=== PATIENT | female | born 1975 | race African-American/Black ===

== ENCOUNTER 2024-02-10 15:52 | Emergency (ER) | payer BC, OTHER ==
[~2024-02-10] VITALS: Ht 165.1 cm; Wt 114.4 kg
--- NOTE | 2024-02-10 17:51 | ED.PDOC ---
HPI (NEURO) HPI Comments HPI: Poor Historian. 48-year-old female presents to the emergency department for evaluation of three day history of right-sided headache. Pain is constant nonradiating. No alleviating or precipitating factors. Patient tried some Tylenol at home without significant relief. Patient has history of remote migraines when she was a child. She says that this is different. Patient denies any fall or trauma or injury. VITALS: Temp: 97.5 F RR: 20 02 sat : 97 % on room air HR: 119 BP: 127/72 PMH: HTN, anemia PSH: metals in legs Social history: endorses tobacco use, denies ETOH use, denies drug use Medications: verapamil, HCTZ, Allergies: contrast dye REVIEW OF SYSTEMS: CONSTITUTIONAL: Denies acute: fever, diaphoresis, chills, generalized weakness. HEAD: Denies acute: photophobia Eyes: Denies acute: Double vision, vision loss, eye pain, eye discharge. EARS: Denies acute: tinnitus, hearing loss, ear discharge, ear pain, THROAT: Denies acute: sore throat, swelling, difficulty swallowing , pain with swallowing, change in voice. NECK: Denies acute: neck pain, neck swelling, stiff neck. HEART: Denies acute : chest pain, palpitations, LUNGS: Denies acute: SOB, wheezing, cough, hemoptysis ABDOMEN: Denies acute: abdominal pain, Nausea, Vomiting, diarrhea, melena , hematemesis, hematochezia SKIN: Denies acute: rash, redness, lesions, itchiness. EXTREMITIES: Denies acute: calf pain, numbness, tingling, weakness, denies pain in extremity. Denies acute: Low back pain. Neuro: Denies acute: focal neurological deficit, motor or sensory focal neurological deficit, tremors, seizure like activity, confusion, dizziness, change in mental status, loss of bowel or bladder function, cauda equina like symptoms. : Denies acute: dysuria, hematuria, flank pain, increase in urinary frequency. PSYCH: Denies acute: hallucination, suicidal ideation, homicidal ideation. FEMALE: Denies acute: abnormal vaginal bleeding, foul odor, unusual discharge. PHYSICAL EXAM: General: no acute distress, awake and alert. Head: normocephalic, atraumatic. Neck: supple, trachea is midline, no swelling. Throat: Normal phonation. Eyes:, no erythema, no purulent discharge, no proptosis, no icterus. Heart: regular rate, regular rhythm, no significant murmur appreciated. Lungs: no apparent respiratory distress, Able to speak in full sentences. No wheezing, no rhonchi, no crackles. No stridors Clear to auscultation bilaterally. Abdomen: non tender to palpation, non distended, soft, no guarding, no rebound, + bowel sounds. Obese Neuro: Awake, Alert, oriented to name, self, situation, follows commands GCS=15. Speech is normal. Skin: no petechia, no purpura, no cyanosis, non-pale, not jaundice. Lower extremities: --no - Pitting edema no deformity, no focal swelling, no calf TTP. Makes eye contact. moves all four extremities. Face: no apparent facial droop. Ambulating in the ED independently. PERRLA, EOM-I CN 2-12 are grossly intact, No nystagmus. No nuchal rigidity, Kernig's sign, Brudzinski's sign, no meningeal signs. Chief Complaint: Headache Time Seen by MD: 16:55 Reviewed Notes: Nurses Notes, Medications, Allergies Information Source: Patient Mode of Arrival: Ambulatory Was a procedure done? Was a procedure done?: No X-Ray, Labs, Meds, VS Vital Signs Date Time Temp Pulse Resp B/P (MAP) Pulse Ox O2 Delivery O2 Flow Rate FiO2 02/10/24 16:18 97.5 119 20 127/72 (90) 97 Lab Test 02/10/24 22:01 02/10/24 19:58 02/10/24 18:32 02/10/24 17:57 Range/Units White Blood Count 14.1 H 15.6 H 4.4-10.8 10^3/uL Red Blood Count 4.77 4.78 4.0-5.20 10^6/uL Hemoglobin 9.4 L 9.6 L 12.2-16.2 g/dL Hematocrit 31.5 L 31.7 L 36.0-46.0 % Mean Corpuscular Volume 66.0 L 66.3 L 80.0-100.0 fL Mean Corpuscular Hemoglobin 19.7 L 20.1 L 28.0-32.0 pg Mean Corpuscular Hemoglobin Concent 29.9 L 30.3 L 32.0-36.0 g/dL Red Cell Distribution Width 20.0 H 19.9 H 11.8-14.3 % Platelet Count 460 H 466 H 140-450 10^3/uL Mean Platelet Volume 7.0 7.2 6.9-10.8 fL Neutrophils (%) (Auto) 65.6 62.9 37.0-80.0 % Lymphocytes (%) (Auto) 27.6 28.9 10.0-50.0 % Monocytes (%) (Auto) 4.7 5.6 0.0-12.0 % Eosinophils (%) (Auto) 1.5 1.9 0.0-7.0 % Basophils (%) (Auto) 0.6 0.7 0.0-2.0 % Neutrophils # (Auto) 9.3 H 9.8 H 1.6-8.6 10 ^3/uL Lymphocytes # (Auto) 3.9 4.5 0.4-5.4 10 ^3/uL Monocytes # (Auto) 0.7 0.9 0-1.3 10 ^3/uL Eosinophils # (Auto) 0.2 0.3 0-0.8 10 ^3/uL Basophils # (Auto) 0.1 0.1 0-0.2 10 ^3/uL Nucleated Red Blood Cells 0.1 0.1 % Lactic Acid Level Pending 2.1 *H 2.2 *H 0.4-2.0 mmol/L Urine Color Light-yellow Yellow Urine Clarity Clear Clear Urine pH 7.0 5.0-9.0 Urine Specific [place] 1.015 1.001-1.035 Urine Protein Negative Negative Urine Ketones Negative Negative Urine Blood 1+ H Negative /uL Urine Nitrite Negative Negative Urine Bilirubin Negative Negative Urine Urobilinogen Normal Negative mg/dL Urine Leukocyte Esterase Negative Negative /uL Urine RBC 1 0 - 4 /hpf Urine WBC 1 0 - 5 /hpf Urine Squamous Epithelial Cells Few <5 /hpf Urine Bacteria None seen None Seen /hpf Urine Glucose Normal Normal mg/dL Platelet Estimate Increased Large Platelets Few Giant Platelets Few Hypochromasia (manual) Moderate Anisocytosis (manual) Slight Microcytosis Moderate Target Cells Few Ovalocytes Few Stomatocytes Few Erythrocyte Sedimentation Rate 22 H 0-20 mm/hr Sodium Level 137 136-145 mmol/L Potassium Level 4.0 3.5-5.1 mmol/L Chloride Level 101 98-107 mmol/L Carbon Dioxide Level 27 20-31 mmol/L Anion Gap 9 5-15 Blood Urea Nitrogen 10 9-23 mg/dL Creatinine 0.86 0.550-1.02 mg/dL Glomerular Filtration Rate Calc 84 >90 mL/min BUN/Creatinine Ratio 11.6 10.0-20.0 Serum Glucose 139 H 74-106 mg/dL Calcium Level 10.2 8.7-10.4 mg/dL Magnesium Level 1.9 1.6-2.6 mg/dL Total Bilirubin 0.2 0.2-1.0 mg/dL Aspartate Amino Transferase (AST) 8 L 13-40 U/L Alanine Aminotransferase (ALT) 12 7-40 U/L Alkaline Phosphatase 116 46-116 U/L Troponin I High Sensitivity < 3 L </=34 ng/L Total Protein 7.5 5.7-8.2 g/dL Albumin 4.6 3.2-4.8 g/dL Beta HCG, Quantitative < 0.0 L 1.5-4.2 mIU/mL Test 02/10/24 16:19 02/10/24 07:30 Range/Units POC Glucose 161 H 70-106 mg/dl Urine Opiates Screen Neg NEGATIVE Urine Fentanyl Screen Neg NEGATIVE Urine Barbiturates Screen Neg NEGATIVE Urine Phencyclidine Screen Neg NEGATIVE Urine Amphetamines Screen Neg NEGATIVE Urine Benzodiazepines Screen Neg NEGATIVE Urine Cocaine Screen Neg NEGATIVE Urine Cannabinoids Screen Neg NEGATIVE Current Medications Medications (Trade) Dose Ordered Sig/Vannsesa Route Start Time Stop Time Status Last Admin Acetaminophen/ Hydrocodone Bitart ([place] 5/325MG Tab) 1 tab ONCE ONCE PO 02/10/24 18:15 02/10/24 18:16 DC 02/10/24 21:50 Sodium Chloride 1,000 ml @ 1,000 mls/hr Q1H ONCE IV 02/10/24 18:45 02/10/24 19:44 DC 02/10/24 18:30 Prednisone 60 mg ONCE ONCE PO 02/10/24 19:45 02/10/24 20:50 DC 02/10/24 21:49 [facility] [id number] [place] [id number] Ph: [phone] DIAGNOSTIC IMAGING Diagnostic Imaging Report : [id number] Signed PATIENT: JOSEPHINE STEEN ACCT: [id number] UNIT: [id number] : 1975 LOC: ER ROOM / BED: / AGE / SEX: 48 / F ADM STATUS: REG ER SERVICE [id number] ORDERING PHYSICIAN: LAISHA RAHMAN DO PROCEDURE(s): HWOCT - HEAD WITHOUT CONTRAST REASON: MULLINS ORDER NUMBER(s): [id number], ACCESSION NUMBER(s): [id number] EXAM: CT HEAD WITHOUT CONTRAST INDICATION: MULLINS TECHNIQUE: CT of the head without intravenous contrast. Radiation Dose Information: CT Dose: CTDI volume is 64.7 mGy. Dose-length product is 1145.48 mGy*cm The dose indicators for CT are the volume Computed Tomography (CT) Dose Index (CTDIvol) and the Dose Length Product (DLP), and are measured in units of mGy and mGy-cm, respectively. These indicators are not patient dose, but values generated from the CT scanner acquisition factors. The report includes radiation exposure data for exposures received during this examination. COMPARISON: None FINDINGS: There is no evidence of acute intracranial hemorrhage, extra-axial collection, mass effect, midline shift, herniation or hydrocephalus. The ventricles, sulci and cisterns are age appropriate. The malloy-white differentiation is intact. Patchy periventricular and subcortical white matter hypoattenuation is nonspecific but may be related to small vessel ischemic disease. The visualized paranasal sinuses and mastoid air cells are clear. The surrounding soft tissues and osseous structures are unremarkable. IMPRESSION: 1. No acute intracranial hemorrhage. 2. No CT findings of territorial ischemia. 3. No CT findings of paranasal sinus disease ATED BY: LOUIS GOODMAN Jr., DO DICTATED DATE/TIME: 02/10/241907 SIGNED BY: LOUIS GOODMAN Jr., SIGNED DATE/TIME: 02/10/241907 CC: Patient Education/Counseling: Diagnosis, Treatment Family Education/Counseling: No Family Present Comments MDM: Patient presented with the above HPI.----- headache -workup was initiated. patient was found with the above mentioned diagnosis. the following medications were ordered: none the following tests were ordered: EKGx1, drug screen, lactic acid, Beta HCG, UA, troponin x 1, ESR, magnesium,CBC, CMP, CT head without contrast, Patient ED course and VS have been stabilized. Patient has been reassessed in the ED and remained in a stable condition. Patient has been observed in the ED adequate length of time to insure improvement/stability. Escalation of care considered: Consideration of escalation to observation or admission. patient was ADMITTED to the medicine team for further evaluation and treatment of their presentation. patient was DISCHARGED after further evaluation and treatment of their presentation. All the reports of any imaging studies that were ordered by myself were reviewed by myself. Departure 1 Departure Time of Disposition: 20:30 Impression: Primary Impression: Right-sided headache Additional Impressions: Anemia Leukocytosis Disposition: HOME / SELF CARE / HOMELESS Condition: Stable Additional Instructions: Additional discharge instructions: You MUST follow-up with your primary care/family doctor in 1 to 2 days. If you are unable to see your primary care/family doctor, please return to our emergency room for re-assessment and re-evaluation in 1 to 2 days. Return to the emergency room here in our facility or to the nearest ER [facility] if your symptoms change or worsen. CONSULTATIONS: you MUST Follow-up for consultation as soon as possible with: -neurology in 1-2 days. Please call for appointment You MUST call the consultants office yourself to make an appointment. You may need to arrange that through your insurance and/or your primary/family doctor. If you are unable to see the field technical support consultant in 1 to 2 days, you must return to our emergency room (or any other ER of your choice) for re-assessment and re- evaluation. Adequate fluid hydration. You are anemic. Take daily iron supplements. Below is a copy of your radiological report for follow up: [facility] [id number] [place] [id number] Ph: [phone] DIAGNOSTIC IMAGING Diagnostic Imaging Report : [id number] Signed PATIENT: JOSEPHINE STEEN ACCT: [id number] UNIT: [id number] : 1975 LOC: ER ROOM / BED: / AGE / SEX: 48 / F ADM STATUS: REG ER SERVICE [id number] ORDERING PHYSICIAN: LAISHA RAHMAN DO PROCEDURE(s): HWOCT - HEAD WITHOUT CONTRAST REASON: MULLINS ORDER NUMBER(s): [id number], ACCESSION NUMBER(s): [id number] EXAM: CT HEAD WITHOUT CONTRAST INDICATION: MULLINS TECHNIQUE: CT of the head without intravenous contrast. Radiation Dose Information: CT Dose: CTDI volume is 64.7 mGy. Dose-length product is 1145.48 mGy*cm The dose indicators for CT are the volume Computed Tomography (CT) Dose Index (CTDIvol) and the Dose Length Product (DLP), and are measured in units of mGy and mGy-cm, respectively. These indicators are not patient dose, but values generated from the CT scanner acquisition factors. The report includes radiation exposure data for exposures received during this examination. COMPARISON: None FINDINGS: There is no evidence of acute intracranial hemorrhage, extra-axial collection, mass effect, midline shift, herniation or hydrocephalus. The ventricles, sulci and cisterns are age appropriate. The malloy-white differentiation is intact. Patchy periventricular and subcortical white matter hypoattenuation is nonspecific but may be related to small vessel ischemic disease. The visualized paranasal sinuses and mastoid air cells are clear. The surrounding soft tissues and osseous structures are unremarkable. IMPRESSION: 1. No acute intracranial hemorrhage. 2. No CT findings of territorial ischemia. 3. No CT findings of paranasal sinus disease ATED BY: LOUIS GOODMAN Jr., DO DICTATED DATE/TIME: 02/10/241907 SIGNED BY: LOUIS GOODMAN Jr., DO SIGNED DATE/TIME: 02/10/241907 CC: Discharged With: Self I personally scribed for LAISHA RAHMAN DO ([email or web address]) on 02/10/24 at 17:51. Electronically submitted by Mitul Nicole ([facility]). I personally scribed for LAISHA RAHMAN DO ([email or web address]) on 02/10/24 at 17:56. Electronically submitted by Mitul Nicole ([facility]). I personally scribed for LAISHA RAHMAN DO ([email or web address]) on 02/10/24 at 19:39. Electronically submitted by Mitul Nicole ([facility]). I personally scribed for LAISHA RAHMAN DO ([email or web address]) on 02/10/24 at 21:04. Electron[facility]ul [facility] ([facility] I personally scribed for LAISHA RAHMAN DO ([facility] on 02/10/24 at 22:25. Electronically submitted by Mitul Nicole ([facility]). LAISHA RAHMAN DO Feb 10, 2024 17:51
[2024-02-10 18:11] LABS: Basophils # (auto) 0.1 10 ^3/uL (0-0.2); Eosinophils # (auto) 0.3 10 ^3/uL (0-0.8); Mean Corpuscular Hgb Conc. 30.3 g/dL (32.0-36.0); Monocytes # (auto) 0.9 10 ^3/uL (0-1.3); Neutrophils # (auto) 9.8 10 ^3/uL (1.6-8.6); Nucleated Red Blood Cells % 0.1 %; Red Cell Distribution Width 19.9 % (11.8-14.3)
[2024-02-10 18:13] LABS: Basophils % (auto) 0.7 % (0.0-2.0); Eosinophils % (auto) 1.9 % (0.0-7.0); Hematocrit 31.7 % (36.0-46.0); Hemoglobin 9.6 g/dL (12.2-16.2); Lymphocytes # (auto) 4.5 10 ^3/uL (0.4-5.4); Lymphocytes % (auto) 28.9 % (10.0-50.0); Mean Corpuscular Hemoglobin 20.1 pg (28.0-32.0); Mean Corpuscular Volume 66.3 fL (80.0-100.0); Monocytes % (auto) 5.6 % (0.0-12.0); Neutrophils % (auto) 62.9 % (37.0-80.0); Platelet Count (auto) 466 10^3/uL (140-450); Red Blood Cells 4.78 10^6/uL (4.0-5.20); White Blood Cell 15.6 10^3/uL (4.4-10.8)
[2024-02-10 18:26] LABS: Alanine Aminotransferase 12 U/L (7-40); Albumin 4.6 g/dL (3.2-4.8); Anion Gap 9 (5-15); BUN/Creatinine Ratio 11.6 (10.0-20.0); Blood Urea Nitrogen 10 mg/dL (9-23); Calcium 10.2 mg/dL (8.7-10.4); Carbon Dioxide 27 mmol/L (20-31); Chloride 101 mmol/L (98-107); Magnesium 1.9 mg/dL (1.6-2.6); Sodium 137 mmol/L (136-145)
[2024-02-10 18:27] LABS: Total Protein 7.5 g/dL (5.7-8.2)
[2024-02-10 18:28] LABS: Alkaline Phosphatase 116 U/L (46-116); Aspartate Aminotransferase 8 U/L (13-40); Bilirubin, Total 0.2 mg/dL (0.2-1.0); Glucose 139 mg/dL (74-106)
[2024-02-10] MEDS: SODIUM CHLORIDE 0.9% 1,000 ML IV ONE (18:30)
[2024-02-10 18:32] LABS: Lactic Acid w/Reflex 2.2 mmol/L (0.4-2.0)
[2024-02-10 18:33] LABS: Urine Bacteria None Seen /hpf (None Seen)
[2024-02-10 18:45] LABS: Erythrocyte Sedimentation Rate 22 mm/hr (0-20)
[2024-02-10 18:46] LABS: Anisocytosis Slight; Giant Platelets Few; Hypochromia Moderate; Large Platelets FEW; Ovalocytes FEW; Platelet Estimate Increased; Stomatocytes Few; Target Cell FEW
[2024-02-10 18:49] LABS: Urine Blood 1+ /uL (Negative); Urine Clarity Clear (Clear); Urine Color Light-Yellow (Yellow); Urine Protein, UAD Negative (Negative); Urine Specific Gravity 1.015 (1.001-1.035); Urine Squamous Epithelial Cell FEW /hpf (<5); Urine Urobilinogen Normal (Negative); Urine WBC 1 /hpf (0 - 5)
--- NOTE | 2024-02-10 19:11 | DVH ---
EXAM: CT HEAD WITHOUT CONTRAST INDICATION: MULLINS TECHNIQUE: CT of the head without intravenous contrast. Radiation Dose Information: CT Dose: CTDI volume is 64.7 mGy. Dose-length product is 1145.48 mGy*cm The dose indicators for CT are the volume Computed Tomography (CT) Dose Index (CTDIvol) and the Dose Length Product (DLP), and are measured in units of mGy and mGy-cm, respectively. These indicators are not patient dose, but values generated from the CT scanner acquisition factors. The report includes radiation exposure data for exposures received during this examination. COMPARISON: None FINDINGS: There is no evidence of acute intracranial hemorrhage, extra-axial collection, mass effect, midline s hift, herniation or hydrocephalus. The ventricles, sulci and cisterns are age appropriate. The malloy-white differentiation is intact. Patchy periventricular and subcortical white matter hypoattenuation is nonspecific but may be related to small vessel ischemic disease. The visualized paranasal sinuses and mastoid air cells are clear. The surrounding soft tissues and osseous structures are unremarkable. IMPRESSION: 1. No acute intracranial hemorrhage. 2. No CT findings of territorial ischemia. 3. No CT findings of paranasal sinus disease
[2024-02-10 19:14] LABS: Amphetamine Screen, Urine Neg (NEGATIVE); Barbiturate Scree,Urine Neg (NEGATIVE); Benzodiazephine Screen, Urine Neg (NEGATIVE); Cannabinoid Screen, Urine Neg (NEGATIVE); Cocaine Screen, Urine Neg (NEGATIVE); Opiate Scree,Urine Neg (NEGATIVE); Phencyclidine Screen, Urine Neg (NEGATIVE)
[2024-02-10] MEDS ORDERED: KETOROLAC TROMETH 30 MG/ML 1ML VIAL IV ONE (19:45)
[2024-02-10] MEDS: predniSONE 20 MG TAB PO ONE (21:49)
[2024-02-10] MEDS: HYDROcodone-ACET 5/325MG TAB PO ONE (21:50)
[2024-02-10 22:15] LABS: Basophils # (auto) 0.1 10 ^3/uL (0-0.2); Eosinophils # (auto) 0.2 10 ^3/uL (0-0.8); Hematocrit 31.5 % (36.0-46.0); Monocytes # (auto) 0.7 10 ^3/uL (0-1.3)
[2024-02-10 22:17] LABS: Basophils % (auto) 0.6 % (0.0-2.0); Eosinophils % (auto) 1.5 % (0.0-7.0); Hemoglobin 9.4 g/dL (12.2-16.2); Lymphocytes # (auto) 3.9 10 ^3/uL (0.4-5.4); Lymphocytes % (auto) 27.6 % (10.0-50.0); Mean Corpuscular Hemoglobin 19.7 pg (28.0-32.0); Mean Corpuscular Hgb Conc. 29.9 g/dL (32.0-36.0); Monocytes % (auto) 4.7 % (0.0-12.0); Neutrophils # (auto) 9.3 10 ^3/uL (1.6-8.6); Neutrophils % (auto) 65.6 % (37.0-80.0); Nucleated Red Blood Cells % 0.1 %; Platelet Count (auto) 460 10^3/uL (140-450); Red Blood Cells 4.77 10^6/uL (4.0-5.20); White Blood Cell 14.1 10^3/uL (4.4-10.8)
[2024-02-10 23:04] VITALS: BP 137/90; PULSE 95; RESP 18; TEMP 97.8; O2SAT 97
== END 2024-02-10 23:12 | disposition home or self-care (01) ==
LOC: ER 15:52
DX: D64.9 Anemia, unspecified (principal); D72.829 Elevated white blood cell count, unspecified; R51.9 Headache, unspecified; I10 Essential (primary) hypertension; Z88.8 Allergy status to other drugs, medicaments and biological substances; Z79.899 Other long term (current) drug therapy
CPT/HCPCS: 36415; 70450; 80053; 80307; 81001; 82962; 83605; 83735; 84484; 84702; 85025; 85652; 96360; 99284; J7030; J7512

== ENCOUNTER 2024-02-19 03:37 | Emergency (ER) | payer BC, OTHER ==
[~2024-02-19] VITALS: Ht 165.1 cm; Wt 116.7 kg
--- NOTE | 2024-02-19 04:49 | ED.PDOC ---
HPI (NEURO) HPI Comments This is a 48-year-old female presents to the ED chief complaint headache x1 week. Patient also reports right lower jaw dental pain and some sinus congestion. She reports migraines in the past which she usually relieved with [id number] Tylenol. The last one last this long was over one year ago. She denies vision changes, slurred speech, fevers, chills, nausea, vomiting, neck pain, worst headache of her life, chest pain, difficulty breathing, shortness of breath. Chief Complaint: Headache Time Seen by MD: 03:44 Reviewed Notes: Nurses Notes, Medications, Allergies Mode of Arrival: Ambulatory Headache Severity: Moderate Past Medical History PAST MEDICAL HISTORY: HTN Family History Family History: Reviewed,noncontributory to illness Social History Smoker: Non-Smoker Alcohol: Denies ETOH Use Drugs: Denies Drug Use Constitutional: denies: chills, diaphoresis, fatigue, fever, malaise, sweats, weakness, others EENTM: reports: nasal discharge, others (toothache ); denies: blurred vision, double vision, ear bleeding, ear discharge, ear drainage, ear pain, ear ringing, eye pain, eye redness, hearing loss, mouth pain, mouth swelling, nose bleeding, nose congestion, nose pain, photophobia, tearing, throat pain, throat swelling, voice changes Respiratory: denies: cough, hemoptysis, orthopnea, SOB at rest, shortness of breath, SOB with excertion, stridor, wheezing, others Cardiovascular: denies: chest pain, dizzy spells, diaphoresis, Dyspnea on exertion, edema, irregular heart beat, left arm pain, lightheadedness, palpitations, PND, syncope, others Gastrointestinal: denies: abdomen distended, abdominal pain, blood streaked bowels, constipated, diarrhea, dysphagia, difficulty swallowing, hematemesis, melena, nausea, poor appetite, poor fluid intake, rectal bleeding, rectal pain, vomiting, others Genitourinary: denies: abnormal vagina bleeding, burning, dyspareunia, dysuria, flank pain, frequency, hematuria, incontinence, pain, , vagina discharge, urgency, others Neurological: reports: headache; denies: dizziness, fainting, left sided numbness, left sided weakness, numbness, paresthesia, pre-existing deficit, right sided numbness, right sided weakness, seizure, speech problems, tingling, tremors, weakness, others Musculoskeletal: denies: back pain, gout, joint pain, joint swelling, muscle pain, muscle stiffness, neck pain, others Integumetry: denies: bruises, change in color, change in hair/nails, dryness, laceration, lesions, lumps, rash, wounds, others Allergic/Immunocompromised: denies: Difficulty Healing, Frequent Infections, Hives, Itching, others Hematologic/Lymphatic: denies: anemia, blood clots, easy bleeding, easy bruising, swollen glands, others Endocrine: denies: excessive hunger, excessive sweating, excessive thirst, excessive urination, flushing, intolerance to cold, intolerance to heat, unexplained weight gain, unexplained weight loss, others Psychiatric: denies: anxiety, bipolar disorder, depression, hopeless, panic disorder, schizophrenia, sleepless, suicidal, others Physical Exam General Appearance: No Apparent Distress, Normal HEENT: Normal ENT Inspection, Pharynx Normal, TMs Normal Neck: Full Range of Motion, Non-Tender Respiratory: Lungs Clear, No Respiratory Distress, Normal Breath Sounds Cardiovascular: No Edema, No JVD, No Murmur, No Gallop, Normal Peripheral Pulses, Regular Rate/Rhythm Breast Exam: Deferred Gastrointestinal: No Organomegaly, Non Tender, No Pulsatile Mass, Normal Bowel Sounds, Soft Genitalia: Deferred Pelvic: Deferred Rectal: Deferred Extremities: Normal capillary refill, Normal inspection, Normal range of motion, Non-tender, No pedal edema Musculoskeletal : Apperance: Normal Neurologic: Alert, station usher II-XII nml as Tested, Headache, No Motor Deficits, Normal Affect, Normal Mood, No Sensory Deficits Cerebellar Function: Normal Reflexes: Normal Skin: Dry, Normal Color, Warm Lymphatic: No Adenopathy Was a procedure done? Was a procedure done?: No Differential Diagnosis (SZ) Headache: Cluster, Migraine X-Ray, Labs, Meds, VS Vital Signs Date Time Temp Pulse Resp B/P (MAP) Pulse Ox O2 Delivery O2 Flow Rate FiO2 02/19/24 08:56 96 16 139/89 (106) 97 02/19/24 03:55 97.7 108 18 134/84 (101) 98 Lab Test 02/19/24 09:14 02/19/24 04:35 Range/Units White Blood Count 14.2 H 4.4-10.8 10^3/uL Red Blood Count 4.37 4.0-5.20 10^6/uL Hemoglobin 8.7 L 12.2-16.2 g/dL Hematocrit 28.8 L 36.0-46.0 % Mean Corpuscular Volume 66.0 L 80.0-100.0 fL Mean Corpuscular Hemoglobin 19.8 L 28.0-32.0 pg Mean Corpuscular Hemoglobin Concent 30.0 L 32.0-36.0 g/dL Red Cell Distribution Width 19.7 H 11.8-14.3 % Platelet Count 642 H 140-450 10^3/uL Mean Platelet Volume 7.0 6.9-10.8 fL Neutrophils (%) (Auto) 81.7 H 37.0-80.0 % Lymphocytes (%) (Auto) 15.8 10.0-50.0 % Monocytes (%) (Auto) 2.0 0.0-12.0 % Eosinophils (%) (Auto) 0.2 0.0-7.0 % Basophils (%) (Auto) 0.3 0.0-2.0 % Neutrophils # (Auto) 11.6 H 1.6-8.6 10 ^3/uL Lymphocytes # (Auto) 2.3 0.4-5.4 10 ^3/uL Monocytes # (Auto) 0.3 0-1.3 10 ^3/uL Eosinophils # (Auto) 0 0-0.8 10 ^3/uL Basophils # (Auto) 0 0-0.2 10 ^3/uL Nucleated Red Blood Cells 0.1 % Platelet Estimate Increased Hypochromasia (manual) Marked Microcytosis Marked Urine Color Colorless Yellow Urine Clarity Clear Clear Urine pH 5.5 5.0-9.0 Urine Specific [place] 1.003 1.001-1.035 Urine Protein Negative Negative Urine Ketones Negative Negative Urine Blood Negative Negative /uL Urine Nitrite Negative Negative Urine Bilirubin Negative Negative Urine Urobilinogen Normal Negative mg/dL Urine Leukocyte Esterase Negative Negative /uL Urine RBC 1 0 - 4 /hpf Urine WBC 2 0 - 5 /hpf Urine Squamous Epithelial Cells Few <5 /hpf Urine Bacteria Few H None Seen /hpf Urine Glucose 1+ H Normal mg/dL Current Medications Medications (Trade) Dose Ordered Sig/Vannessa Route Start Time Stop Time Status Last Admin Ketorolac Tromethamine (Toradol Injection) 60 mg ONCE ONCE IM 02/19/24 04:45 02/19/24 04:47 DC 02/19/24 05:52 Dexamethasone Sodium Phosphate (Decadron Injection) 10 mg ONCE ONCE IM 02/19/24 04:45 02/19/24 04:47 DC 02/19/24 05:53 X-Ray, Labs, Meds, VS Comment Hemoglobin trending down. I will start ferrous sulfate advised to return in seven days for repeat labs or sooner if symptoms worsen Antibiotics prescribed empirically History consistent with no red flags. No indication for head CT at this time. Although it was considered Low concern for meningitis as there are no signs of fever, altered mentation nor neck stiffness. Brudzinski/Kernig negative. Low concern for subarachnoid hemorrhage there are no signs of a thunderclap headache Low concern for subdural hematoma and intracranial hemorrhage as there is no history of trauma, progressively worsening headache and neuroexam is unremarkable. Low suspicion for brain tumor as neuroexam is unremarkable. No nausea vomiting. No morning or nocturnal headache. No suspicion for temporal arteritis as there are no signs of fever, muscle weakness, jaw claudication, no transient visual loss. Counseled to start headache diary Recommended headache elimination diet Avoid prolonged periods of fasting Drink plenty of water Exercise daily, limit screen time Aim to sleep 8 to 9 hours per night, practice good hygiene ED precautions given Time of 1ST Reevaluation: 08:56 Reevaluation 1ST: Improved Patient Education/Counseling: Diagnosis, Treatment Family Education/Counseling: Diagnosis, Treatment Departure 1 Departure Time of Disposition: 08:56 Impression: Primary Impression: Headache Qualified Codes: R51.9 - Headache, unspecified Disposition: 07 LEFT WITHOUT BEING SEEN Condition: Stable e-Prescriptions Ferrous Sulfate (FERROUS SULFATE) 325 Mg Tb 1 TAB PO DAILY for 30 Days, #30 TAB 0 Refills Prov: BERTHA JOHNSON WEB DEVELOPMENT MANAGER 02/19/24 Ibuprofen (Ibuprofen) 600 Mg Tab 1 TAB PO TID for 10 Days, #30 TAB 0 Refills Prov: BERTHA JOHNSON WEB DEVELOPMENT MANAGER 02/19/24 Amoxicillin & Pot Clavulanate (AUGMENTIN TABLET) 875 Mg Tb 875 MG PO BID for 7 Days, #14 TAB 0 Refills Prov: BERTHA JOHNSON WEB DEVELOPMENT MANAGER 02/19/24 Discharged With: Self Critical Care Note Critical Care Time?: No Stability Stability form required: VANDA Steele C[employer]ON FORMING MACHINE OPERATOR Feb 19, 2024 04:49 BERTHA JOHNSON WEB DEVELOPMENT MANAGER Feb 19, 2024 08:58
[2024-02-19 05:19] LABS: Urine Bacteria FEW /hpf (None Seen); Urine Blood Negative /uL (Negative); Urine Clarity Clear (Clear); Urine Color Colorless (Yellow); Urine Protein, UAD Negative (Negative); Urine Specific Gravity 1.003 (1.001-1.035); Urine Urobilinogen Normal (Negative); Urine WBC 2 /hpf (0 - 5); Urine pH 5.5 (5.0-9.0)
[2024-02-19] MEDS: KETOROLAC TROMETH 60MG/2ML VIAL IM ONE (05:52)
[2024-02-19] MEDS: DexAMETHasone SOD PHOS 10MG/1ML VIAL INJ IM ONE (05:53)
[2024-02-19 08:56] VITALS: BP 139/89; PULSE 96; RESP 16; O2SAT 97
[2024-02-19] MEDS ORDERED: AUG875T PO (08:58)
[2024-02-19] MEDS ORDERED: IBUP-1454 PO (08:58)
[2024-02-19] MEDS ORDERED: FER325T PO (09:00)
[2024-02-19 09:30] LABS: Eosinophils # (auto) 0 10 ^3/uL (0-0.8); Eosinophils % (auto) 0.2 % (0.0-7.0); Mean Corpuscular Hemoglobin 19.8 pg (28.0-32.0)
[2024-02-19 09:33] LABS: Basophils # (auto) 0 10 ^3/uL (0-0.2); Basophils % (auto) 0.3 % (0.0-2.0); Hematocrit 28.8 % (36.0-46.0); Hemoglobin 8.7 g/dL (12.2-16.2); Lymphocytes # (auto) 2.3 10 ^3/uL (0.4-5.4); Lymphocytes % (auto) 15.8 % (10.0-50.0); Monocytes # (auto) 0.3 10 ^3/uL (0-1.3); Neutrophils # (auto) 11.6 10 ^3/uL (1.6-8.6); Neutrophils % (auto) 81.7 % (37.0-80.0); Nucleated Red Blood Cells % 0.1 %; Platelet Count (auto) 642 10^3/uL (140-450); Red Blood Cells 4.37 10^6/uL (4.0-5.20); Red Cell Distribution Width 19.7 % (11.8-14.3); White Blood Cell 14.2 10^3/uL (4.4-10.8)
[2024-02-19 12:53] LABS: Platelet Estimate Increased
[2024-02-19 12:54] LABS: Hypochromia Marked
== END 2024-02-19 10:04 | disposition home or self-care (01) ==
LOC: ER 03:37
DX: R51.9 Headache, unspecified (principal); I10 Essential (primary) hypertension
CPT/HCPCS: 36415; 81001; 85025; 96372; 99284; J1100; J1885

== ENCOUNTER 2024-08-15 22:57 | Emergency (ER) | payer MEDICARE, MEDICAID ==
[~2024-08-15] VITALS: Ht 165.1 cm; Wt 105.8 kg
[~2024-08-15 22:57] MED LIST: AUG875T PO; FER325T PO; IBUP-1454 PO
--- NOTE | 2024-08-15 23:25 | ED.PDOC ---
History of Present Illness HPI Comments 48-year-old female who came to ER for dizziness. Patient has history of diabetes, but she has been off her medications since last night. Supposed to get a refill tomorrow. Additionally, patient has a history of anxiety for which she does not currently utilize medication for. Few hours ago, patient started feeling dizzy with episodes of jitteriness/ tremors. Unsure if her blood sugar levels were high, so she had size to come to the ER to be evaluated. Upon arrival, Accu-Chek done at the triage read 110. Patient was hypertensive and tachycardic. Patient states she has a history of hypertension and did not take her nighttime medications. Chief Complaint: Dizziness Time Seen by MD: 23:25 Reviewed Notes: Nurses Notes Allergies: Uncoded Allergies: CONTRAST (Allergy, Unknown, 02/19/24) Home Meds Active Scripts Sulfamethoxazole W/Trimethopri (Bactrim Ds Tablet) 1 Tab Tb, 1 TAB PO BID for 3 Days, #6 TAB Prov:ADELAIDE BLOUNT PAC 08/16/24 Ferrous Sulfate (FERROUS SULFATE) 325 Mg Tb, 1 TAB PO DAILY for 30 Days, #30 TAB 0 Refills Prov:BERTHA JOHNSON OCCUPATIONAL THERAPY ASSIST 02/19/24 Ibuprofen (Ibuprofen) 600 Mg Tab, 1 TAB PO TID for 10 Days, #30 TAB 0 Refills Prov:BERTHA JOHNSON NP 02/19/24 Amoxicillin & Pot Clavulanate (AUGMENTIN TABLET) 875 Mg Tb, 875 MG PO BID for 7 Days, #14 TAB 0 Refills Prov:BERTHA JOHNSON NP 02/19/24 Information Source: Patient Mode of Arrival: Ambulatory Severity: Moderate Timing: Hours Duration: Since onset Prehospital treatment: None Past Medical History PAST MEDICAL HISTORY: Anxiety, DM, GERD, HTN Surgical History: Denies all surgeries Surgical History (Other): Left ankle surgery SITE LEADER History: No Pertinent SITE LEADER History Family History Family History: Reviewed,noncontributory to illness Social History Smoker: Non-Smoker Alcohol: Denies ETOH Use Drugs: Denies Drug Use Lives In: Home Constitutional: denies: chills, diaphoresis, fatigue, fever, malaise, sweats, weakness, others EENTM: denies: blurred vision, double vision, ear bleeding, ear discharge, ear drainage, ear pain, ear ringing, eye pain, eye redness, hearing loss, mouth pain, mouth swelling, nasal discharge, nose bleeding, nose congestion, nose p ain, photophobia, tearing, throat pain, throat swelling, voice changes, others Respiratory: denies: cough, hemoptysis, orthopnea, SOB at rest, shortness of breath, SOB with excertion, stridor, wheezing, others Cardiovascular: denies: chest pain, dizzy spells, diaphoresis, Dyspnea on exertion, edema, irregular heart beat, left arm pain, lightheadedness, palpitations, PND, syncope, others Gastrointestinal: denies: abdomen distended, abdominal pain, blood streaked bowels, constipated, diarrhea, dysphagia, difficulty swallowing, hematemesis, melena, nausea, poor appetite, poor fluid intake, rectal bleeding, rectal pain, vomiting, others Genitourinary: denies: abnormal vagina bleeding, burning, dyspareunia, dysuria, flank pain, frequency, hematuria, incontinence, pain, , vagina discharge, urgency, others Neurological: reports: dizziness, tremors; denies: fainting, headache, left sided numbness, left sided weakness, numbness, paresthesia, pre-existing deficit, right sided numbness, right sided weakness, seizure, speech problems, tingling, weakness Musculoskeletal: denies: back pain, gout, joint pain, joint swelling, muscle pain, muscle stiffness, neck pain, others Integumetry: denies: bruises, change in color, change in hair/nails, dryness, laceration, lesions, lumps, rash, wounds, others Allergic/Immunocompromised: denies: Difficulty Healing, Frequent Infections, Hives, Itching, others Hematologic/Lymphatic: denies: anemia, blood clots, easy bleeding, easy bruising, swollen glands, others Endocrine: denies: excessive hunger, excessive sweating, excessive thirst, excessive urination, flushing, intolerance to cold, intolerance to heat, unexplained weight gain, unexplained weight loss, others Psychiatric: denies: anxiety, bipolar disorder, depression, hopeless, panic disorder, schizophrenia, sleepless, suicidal, others Physical Exam General Appearance: Moderate Distress (Patient was in [id number] distress due to anxiety as much as any physiologic concerns.), Normal HEENT: Normal ENT Inspection, Pharynx Normal, TMs Normal Neck: Full Range of Motion, Non-Tender, Normal, Normal Inspection Respiratory: Chest Non-Tender, Lungs Clear, No Accessory Muscle Use, No Respiratory Distress, Normal Breath Sounds Cardiovascular: No Edema, No JVD, No Murmur, No Gallop, Normal Peripheral Pulses, Regular Rate/Rhythm Breast Exam: Deferred Gastrointestinal: Non Tender, No Pulsatile Mass, Normal Bowel Sounds, Soft Genitalia: Deferred Pelvic: Deferred Rectal: Deferred Extremities: No calf tenderness, Normal capillary refill, Normal inspection, Normal range of motion, Non-tender, No pedal edema Musculoskeletal : Apperance: Normal Neurologic: Alert, No Motor Deficits, No Sensory Deficits Cerebellar Function: Normal Reflexes: Normal Skin: Dry, Normal Color, Warm Lymphatic: No Adenopathy Was a procedure done? Was a procedure done?: No Differential Dx Considerations may include: Anemia, electrolyte imbalance, hyperglycemia, anxiety, medication noncompliance X-Ray, Labs, Meds, VS Vital Signs Date Time Temp Pulse Resp B/P (MAP) Pulse Ox O2 Delivery O2 Flow Rate FiO2 08/16/24 01:00 99.0 89 14 148/95 (112) 96 99.0 08/15/24 23:18 97.9 112 12 151/100 (117) 97 97.9 Lab Test 08/15/24 23:35 08/15/24 23:29 Range/Units Urine Color Colorless Yellow Urine Clarity Turbid H Clear Urine pH 6.0 5.0-9.0 Urine Specific Thayer 1.001 1.001-1.035 Urine Protein Negative Negative Urine Ketones Negative Negative Urine Blood Negative Negative /uL Urine Nitrite Negative Negative Urine Bilirubin Negative Negative Urine Urobilinogen Normal Negative mg/dL Urine Leukocyte Esterase Negative Negative /uL Urine RBC None seen 0 - 4 /hpf Urine Microscopic WBC 1 0-5 /HPF Urine Squamous Epithelial Cells Few <5 /hpf Urine Bacteria None seen None Seen /hpf Urine Glucose Normal Normal mg/dL White Blood Count 18.1 H 4.4-10.8 10^3/uL Red Blood Count 4.91 4.0-5.20 10^6/uL Hemoglobin 9.2 L 12.2-16.2 g/dL Hematocrit 30.3 L 36.0-46.0 % Mean Corpuscular Volume 61.7 L 80.0-100.0 fL Mean Corpuscular Hemoglobin 18.7 L 28.0-32.0 pg Mean Corpuscular Hemoglobin Concent 30.4 L 32.0-36.0 g/dL Red Cell Distribution Width 21.2 H 11.8-14.3 % Platelet Count 693 H 140-450 10^3/uL Mean Platelet Volume 7.6 6.9-10.8 fL Neutrophils (%) (Auto) 37.0-80.0 % Lymphocytes (%) (Auto) 10.0-50.0 % Monocytes (%) (Auto) 0.0-12.0 % Basophils (%) (Auto) 0.0-2.0 % Neutrophils # (Auto) 1.6-8.6 10 ^3/uL Lymphocytes # (Auto) 0.4-5.4 10 ^3/uL Monocytes # (Auto) 0-1.3 10 ^3/uL Differential Total Cells Counted 100.0 100 Neutrophils % (Manual) 69 37.0-80.0 Band Neutrophils % (Manual) 0 Lymphocytes % (Manual) 23 10.0-50.0 Monocytes % (Manual) 4 0-12 Eosinophils % (Manual) 4 0-7 Basophils % (Manual) 0 0.0-2.0 Metamyelocytes % (manual) 0 Myelocytes % (Manual) 0 Promyelocytes % (Manual) 0 Blast Cells % (Manual) 0 Reactive Lymphocytes 0 Platelet Estimate Increased Hypochromasia (manual) Marked Anisocytosis (manual) Slight Microcytosis Marked Sodium Level 138 136-145 mmol/L Potassium Level 3.7 3.5-5.1 mmol/L Chloride Level 104 98-107 mmol/L Carbon Dioxide Level 24 20-31 mmol/L Anion Gap 10 5-15 Blood Urea Nitrogen < 5 L 9-23 mg/dL Creatinine 0.68 0.550-1.02 mg/dL Glomerular Filtration Rate Calc 108 >90 mL/min BUN/Creatinine Ratio 7.4 L 10.0-20.0 Serum Glucose 102 74-106 mg/dL Calcium Level 9.3 8.7-10.4 mg/dL X-Ray, Labs, Meds, VS Comment Informed the ED were evaluated by me personally. Laboratories studies revealed an un-sourced leukocytosis. Urine was unremarkable for any acute findings. Patient's blood pressure returned into an acceptable range as did her heart rate at time of discharge. Patient will be sent home with a short course of antibiotics to address her leukocytosis concerns. I discussed with the patient if she had any history of steroid use or any other infective concerns. Patient states she has a tooth infection concerns that she is going to the dentist for on Monday. 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 Patient should follow up with the primary care provider in the next few days for re-evaluation of white blood cell concerns as well as discussions related to proper management of diabetes and hypertension. Patient needs to follow up with dentist for definitive evaluation of tooth issues. Time of 1ST Reevaluation: 01:05 Reevaluation 1ST: Improved Consultation: PCP Patient Education/Counseling: Diagnosis, Treatment, Prognosis Family Education/Counseling: Diagnosis, Treatment, No Family Present SEPSIS Sepsis Screen Recent Procedure: No On Antibiotic Therapy: No Respiratory Rate >20: No Heart Rate >90: Yes Temp<36 C (96.8 F) or >38.3 C: No SBP <90 or MAP <65 mmHG: No New Acute Mental Status Change: No Is the patient on CPAP, BIPAP,: No IV fluid challenge completed?: No Vital Signs Date Time Temp Pulse Resp B/P (MAP) Pulse Ox O2 Delivery O2 Flow Rate FiO2 08/16/24 01:00 99.0 89 14 148/95 (112) 96 99.0 08/15/24 23:18 97.9 112 12 151/100 (117) 97 97.9 Laboratory Tests Test 08/15/24 23:29 White Blood Count 18.1 10^3/uL (4.4-10.8) H Departure 1 Departure Time of Disposition: 01:06 Impression: Primary Impression: Leukocytosis Disposition: 01 HOME / SELF CARE / HOMELESS Condition: Stable Additional Instructions: Advised patient utilize antibiotics as directed until completion. Patient should follow up with the primary care provider in the next few days for re- evaluation of white blood cell concerns, blood pressure and blood sugar management. e-Prescriptions Sulfamethoxazole W/Trimethopri (Bactrim Ds Tablet) 1 Tab Tb 1 TAB PO BID for 3 Days, #6 TAB Prov: ADELAIDE BLOUNT PAC 08/16/24 Discharged With: Self, Friend Critical Care Note Critical Care Time?: No Stability Stability form required: No Heart Score Heart Score: Heart Score Response (Comments) Value History N/A 0 EKG N/A 0 Age N/A 0 Risk Factors N/A 0 Troponin N/A 0 Total 0 I personally scribed for ADELAIDE BLOUNT PAC ([email or web address]) on 08/15/24 at 23:25. Electronically submitted by Saúl Weaver ([facility]). ADELAIDE BLOUNT PAC Aug 15, 2024 23:25
[2024-08-15 23:40] LABS: Urine Bacteria None Seen /hpf (None Seen)
[2024-08-15 23:49] LABS: Urine Blood Negative /uL (Negative); Urine Clarity Turbid (Clear); Urine Color Colorless (Yellow); Urine Protein, UAD Negative (Negative); Urine Specific Gravity 1.001 (1.001-1.035); Urine Squamous Epithelial Cell FEW /hpf (<5); Urine Urobilinogen Normal (Negative); Urine WBC 1 /HPF (0-5)
[2024-08-15 23:53] LABS: Hemoglobin 9.2 g/dL (12.2-16.2)
[2024-08-15 23:55] LABS: Chloride 104 mmol/L (98-107); Hematocrit 30.3 % (36.0-46.0); Mean Corpuscular Hemoglobin 18.7 pg (28.0-32.0); Mean Corpuscular Hgb Conc. 30.4 g/dL (32.0-36.0); Mean Corpuscular Volume 61.7 fL (80.0-100.0); Platelet Count (auto) 693 10^3/uL (140-450); Potassium 3.7 mmol/L (3.5-5.1); Red Blood Cells 4.91 10^6/uL (4.0-5.20); Red Cell Distribution Width 21.2 % (11.8-14.3); Sodium 138 mmol/L (136-145); White Blood Cell 18.1 10^3/uL (4.4-10.8)
[2024-08-15 23:56] LABS: Anion Gap 10 (5-15); Carbon Dioxide 24 mmol/L (20-31)
[2024-08-15 23:57] LABS: Calcium 9.3 mg/dL (8.7-10.4)
[2024-08-16 00:02] LABS: BUN/Creatinine Ratio 7.4 (10.0-20.0); Band Neutrophils % (manual) 0; Basophils % (manual) 0 (0.0-2.0); Blast Cells 0; Blood Urea Nitrogen < 5 mg/dL (9-23); Glucose 102 mg/dL (74-106); Metamyelocytes % 0; Myelocytes % 0; Promyelocytes % 0; Reactive Lymphocytes 0
[2024-08-16 00:22] LABS: Eosinophils % (manual) 4 (0-7); Lymphocytes % (manual) 23 (10.0-50.0); Monocytes % (manual) 4 (0-12)
[2024-08-16 00:23] LABS: Anisocytosis Slight; Hypochromia Marked; Platelet Estimate Increased
[2024-08-16 01:00] VITALS: BP 148/95; PULSE 89; RESP 14; TEMP 99; O2SAT 96
[2024-08-16] MEDS ORDERED: BACDST PO (01:07)
== END 2024-08-16 02:03 | disposition home or self-care (01) ==
LOC: ER 23:00
DX: D72.829 Elevated white blood cell count, unspecified (principal); I10 Essential (primary) hypertension; E11.9 Type 2 diabetes mellitus without complications; F41.9 Anxiety disorder, unspecified; K21.9 Gastro-esophageal reflux disease without esophagitis; Z79.899 Other long term (current) drug therapy; Z98.890 Other specified postprocedural states
CPT/HCPCS: 36415; 80048; 81001; 82947; 85007; 85027

== ENCOUNTER 2024-09-14 21:57 | Emergency (ER) | payer MEDICARE, MEDICAID ==
[~2024-09-14] VITALS: Ht 165.1 cm; Wt 102.0 kg
[~2024-09-14 21:57] MED LIST changes: +BACDST PO
--- NOTE | 2024-09-15 00:32 | ED.PDOC ---
History of Present Illness HPI Comments 48 y/o F presents with 2x day history of headache with mild photophobia. Patient reports on having a history of migraines, which are, usually, managed with [id number] pain medications. She states on those same medications being ineffective, now. No recent head injuries endorsed. Denies any vision or speech changes, weakness, dizziness, or further associated symptoms. Patient states the headache has been severe at times. Patient mildly tachycardic at arrival. Chief Complaint: Headache Time Seen by MD: 22:50 Reviewed Notes: Nurses Notes, Medications, Allergies Allergies: Uncoded Allergies: CONTRAST (Allergy, Unknown, 02/19/24) Home Meds Active Scripts Sulfamethoxazole W/Trimethopri (Bactrim Ds Tablet) 1 Tab Tb, 1 TAB PO BID for 3 Days, #6 TAB Prov:ADELAIDE BLOUNT PAC 08/16/24 Ferrous Sulfate (FERROUS SULFATE) 325 Mg Tb, 1 TAB PO DAILY for 30 Days, #30 TAB 0 Refills Prov:BERTHA JOHNSON FRONT OFFICE HELP 02/19/24 Ibuprofen (Ibuprofen) 600 Mg Tab, 1 TAB PO TID for 10 Days, #30 TAB 0 Refills Prov:BERTHA JOHNSON NP 02/19/24 Amoxicillin & Pot Clavulanate (AUGMENTIN TABLET) 875 Mg Tb, 875 MG PO BID for 7 Days, #14 TAB 0 Refills Prov:BERTHA JOHNSON FRONT OFFICE HELP 02/19/24 Information Source: Patient Mode of Arrival: Ambulatory Severity: Moderate Timing: Days Duration: Since onset Prehospital treatment: None Past Medical History PAST MEDICAL HISTORY: Anxiety, DM, GERD, HTN Past Medical History (Other): History of migraine headaches Surgical History: Denies all surgeries TUBE TRAILER FILLER History: No Pertinent TUBE TRAILER FILLER History Family History Family History: Reviewed,noncontributory to illness Social History Smoker: Non-Smoker Alcohol: Denies ETOH Use Drugs: Denies Drug Use Lives In: Home Constitutional: denies: chills, diaphoresis, fatigue, fever, malaise, sweats, weakness, others EENTM: denies: blurred vision, double vision, ear bleeding, ear discharge, ear drainage, ear pain, ear ringing, eye pain, eye redness, hearing loss, mouth pain, mouth swelling, nasal discharge, nose bleeding, nose congestion, nose pain, photophobia, tearing, throat pain, throat swelling, voice changes, others Respiratory: denies: cough, hemoptysis, orthopnea, SOB at rest, shortness of breath, SOB with excertion, stridor, wheezing, others Cardiovascular: denies: chest pain, dizzy spells, diaphoresis, Dyspnea on exertion, edema, irregular heart beat, left arm pain, lightheadedness, palpitations, PND, syncope, others Gastrointestinal: denies: abdomen distended, abdominal pain, blood streaked bowels, constipated, diarrhea, dysphagia, difficulty swallowing, hematemesis, melena, nausea, poor appetite, poor fluid intake, rectal bleeding, rectal pain, vomiting, others Genitourinary: denies: abnormal vagina bleeding, burning, dyspareunia, dysuria, flank pain, frequency, hematuria, incontinence, pain, , vagina discharge, urgency, others Neurological: reports: headache; denies: dizziness, fainting, left sided numbness, left sided weakness, numbness, paresthesia, pre-existing deficit, right sided numbness, right sided weakness, seizure, speech problems, tingling, tremors, weakness, others Musculoskeletal: denies: back pain, gout, joint pain, joint swelling, muscle p ain, muscle stiffness, neck pain, others Integumetry: denies: bruises, change in color, change in hair/nails, dryness, laceration, lesions, lumps, rash, wounds, others Allergic/Immunocompromised: denies: Difficulty Healing, Frequent Infections, Hives, Itching, others Hematologic/Lymphatic: denies: anemia, blood clots, easy bleeding, easy bruising, swollen glands, others Endocrine: denies: excessive hunger, excessive sweating, excessive thirst, excessive urination, flushing, intolerance to cold, intolerance to heat, unexplained weight gain, unexplained weight loss, others Psychiatric: denies: anxiety, bipolar disorder, depression, hopeless, panic disorder, schizophrenia, sleepless, suicidal, others All Other Systems: Reviewed and Negative (Comprehensive systems review obtained and negative except for what is stated in the HPI.) Physical Exam General Appearance: Moderate Distress (Moderate distress due to headache concerns.), Obese HEENT: Head (Unremarkable cranial exam. No skull depressions or deformities. No signs of trauma.), Normal ENT Inspection, Pharynx Normal, TMs Normal Neck: Full Range of Motion, Non-Tender, Normal, Normal Inspection Respiratory: Chest Non-Tender, Lungs Clear, No Accessory Muscle Use, No Respiratory Distress, Normal Breath Sounds Cardiovascular: No Edema, No JVD, No Murmur, No Gallop, Normal Peripheral Pulses, Regular Rate/Rhythm Breast Exam: Deferred Gastrointestinal: No Organomegaly, Non Tender, No Pulsatile Mass, Normal Bowel Sounds, Soft Genitalia: Deferred Pelvic: Deferred Rectal: Deferred Extremities: No calf tenderness, Normal capillary refill, Normal inspection, Normal range of motion, Non-tender, No pedal edema Neurologic: Alert, No Motor Deficits, Normal Affect, Normal Mood, No Sensory Deficits Cerebellar Function: Normal Reflexes: Normal Skin: Dry, Normal Color, Warm Lymphatic: No Adenopathy Was a procedure done? Was a procedure done?: No Differential Dx Considerations may include: migraines, tension, dehydration, electrolyte imbalance, viral syndrome, among others X-Ray, Labs, Meds, VS Vital Signs Date Time Temp Pulse Resp B/P (MAP) Pulse Ox O2 Delivery O2 Flow Rate FiO2 09/14/24 22:56 98.5 112 18 125/92 (103) 97 98.5 Current Medications Medications (Trade) Dose Ordered Sig/Vannessa Route Start Time Stop Time Status Last Admin Acetaminophen/ Hydrocodone Bitart ([place] 10/325MG Tab) 1 tab ONCE ONCE PO 09/14/24 23:15 09/14/24 23:16 DC 09/15/24 00:46 X-Ray, Labs, Meds, VS Comment All studies performed in the ED were evaluated by me personally. CT studies of the head were unremarkable for any acute intracranial concerns. Patient appears to have a difficult migraine headache. Advised patient follow up with her primary care provider for discussions related to continued migraine headache management. Time of 1ST Reevaluation: 01:04 Reevaluation 1ST: Improved Consultation: PCP Patient Education/Counseling: Diagnosis, Treatment, Need For Follow Up Family Education/Counseling: Diagnosis, Treatment, No Family Present SEPSIS Sepsis Screen Date sepsis recognized/suspect: Sep 14, 2024 Time Sepsis recognized/suspect: 2231 Recent Procedure: No On Antibiotic Therapy: No Respiratory Rate >20: No Heart Rate >90: Yes Temp<36 C (96.8 F) or >38.3 C: No SBP <90 or MAP <65 mmHG: No New Acute Mental Status Change: No Is the patient on CPAP, BIPAP,: No Physician Orders Head Without Contrast (09/14/24 23:01) Vital Signs Date Time Temp Pulse Resp B/P (MAP) Pulse Ox O2 Delivery O2 Flow Rate FiO2 09/14/24 22:56 98.5 112 18 125/92 (103) 97 98.5 Medications Medications Dose Ordered Sig/Vannessa Route Start Time Stop Time Status Last Admin Dose Admin Acetaminophen/ Hydrocodone Bitart 1 tab ONCE ONCE PO 09/14/24 23:15 09/14/24 23:16 DC 09/15/24 00:46 Departure 1 Departure Time of Disposition: 01:05 Impression: Primary Impression: Headache Disposition: 01 HOME / SELF CARE / HOMELESS Condition: Stable Additional Instructions: Advised patient follow up with the primary care provider for discussions related to today's visit and long-term management of her difficult to manage migraine headaches. Discharged With: Self, Friend Critical Care Note Critical Care Time?: No Stability Stability form required: No Heart Score Heart Score: Heart Score Response (Comments) Value History N/A 0 EKG N/A 0 Age N/A 0 Risk Factors N/A 0 Troponin N/A 0 Total 0 I personally scribed for MANAS WILSON MD ([email or web address]) on 09/15/24 at 00:32. Electronically submitted by Mauricio Levine ([email or web address]). MANAS WILSON MD Sep 15, 2024 00:32 ADELAIDE BLOUNT [facility] Sep 15, 2024 01:05
[2024-09-15] MEDS: HYDROcodone-ACET 10/325MG TAB PO ONE (00:46)
--- NOTE | 2024-09-15 00:59 | DVH ---
CT BRAIN WITHOUT CONTRAST HISTORY: Severe headache TECHNIQUE: Axial scans were obtained from the skull base through the vertex without contrast. [place] l and coronal reformats were generated. One or more of the following radiation dose reduction techniq ues were used for this examination: automated exposure control, adjustment of the mA and/or kV accord ing to patient size, use of iterative reconstruction technique. COMPARISON: CT HEAD WITHOUT CONTRAST on DOS: 02/10/24 FINDINGS: No acute intracranial hemorrhage or evidence of large vessel territorial infarction identified at thi s time. No midline shift. The basilar cisterns are patent. Fernandez-white differentiation appears relat ively preserved. There is suggestion of empty sella. The visualized paranasal sinuses and mastoid air cells are clear. No grossly displaced calvarial frac ture is identified. IMPRESSION: No acute intracranial findings. There is suggestion of empty sella. This can be further evaluated with follow-up MRI.
[2024-09-15 01:22] VITALS: BP 131/95; PULSE 83; RESP 16; TEMP 98.3; O2SAT 97
== END 2024-09-15 01:21 | disposition home or self-care (01) ==
LOC: ER 21:57
DX: R51.9 Headache, unspecified (principal); E11.9 Type 2 diabetes mellitus without complications; I10 Essential (primary) hypertension
CPT/HCPCS: 70450

== ENCOUNTER 2024-09-16 00:44 | Emergency (ER) | payer MEDICARE, MEDICAID ==
[~2024-09-16] VITALS: Ht 165.1 cm; Wt 99.9 kg
--- NOTE | 2024-09-16 01:13 | ED.PDOC ---
History of Present Illness HPI Comments 48 y/o obese F presents with c/c nonradiating, sternal chest pain. Significant history for DM, HTN, anxiety, and anemia. Patient reports on sudden and unprovoked onset of pain 2x hours ago, while asleep, this evening. Pain has since subsided on its own prior to arrival. Patient reports on taking her Hydrochlorothiazide and Verapamil earlier than usual, last night, in addition to being stressed, due to recent of a family member, earlier, this month, and concerns regarding the progress of her daughter's legal case. Patient also mentions being evaluated in the ED, yesterday, for headaches, which findings were stated to have been benign then. No shortness of breath, or further assoc iated symptoms endorsed. Chief Complaint: Chest Pain Time Seen by MD: 01:00 Reviewed Notes: Nurses Notes, Medications, Allergies Allergies: Uncoded Allergies: CONTRAST (Allergy, Unknown, 02/19/24) Home Meds Active Scripts Sulfamethoxazole W/Trimethopri (Bactrim Ds Tablet) 1 Tab Tb, 1 TAB PO BID for 3 Days, #6 TAB Prov:ADELAIDE BLOUNT PAC 08/16/24 Ferrous Sulfate (FERROUS SULFATE) 325 Mg Tb, 1 TAB PO DAILY for 30 Days, #30 TAB 0 Refills Prov:BERTHA JOHNSON NP 02/19/24 Ibuprofen (Ibuprofen) 600 Mg Tab, 1 TAB PO TID for 10 Days, #30 TAB 0 Refills Prov:BERTHA JOHNSON NP 02/19/24 Amoxicillin & Pot Clavulanate (AUGMENTIN TABLET) 875 Mg Tb, 875 MG PO BID for 7 Days, #14 TAB 0 Refills Prov:BERTHA JOHNSON NP 02/19/24 Information Source: Patient Mode of Arrival: Ambulatory Severity: Moderate Timing: Hours Duration: Minutes Prehospital treatment: None Past Medical History PAST MEDICAL HISTORY: Anemia, Anxiety, DM, GERD, HTN Surgical History: Denies all surgeries PROFESSOR OF EDUCATION History: No Pertinent PROFESSOR OF EDUCATION History Family History Family History: Reviewed,noncontributory to illness Social History Smoker: Non-Smoker Alcohol: Denies ETOH Use Drugs: Denies Drug Use Lives In: Home All Other Systems: Reviewed and Negative (Comprehensive review of systems are negative unless otherwise stated in HPI) Physical Exam General Appearance: No Apparent Distress, Normal HEENT: Normal ENT Inspection, Pharynx Normal, TMs Normal Neck: Full Range of Motion, Non-Tender, Normal, Normal Inspection Respiratory: Chest Non-Tender, Lungs Clear, No Accessory Muscle Use, No Respiratory Distress, Normal Breath Sounds Cardiovascular: No Edema, No JVD, No Murmur, No Gallop, Normal Peripheral Pulses, Regular Rate/Rhythm Breast Exam: Deferred Gastrointestinal: No Organomegaly, Non Tender, No Pulsatile Mass, Normal Bowel Sounds, Soft Genitalia: Deferred Pelvic: Deferred Rectal: Deferred Extremities: No calf tenderness, Normal capillary refill, Normal inspection, Normal range of motion, Non-tender, No pedal edema Musculoskeletal : Apperance: Normal Neurologic: Alert, cigar bander hand II-XII nml as Tested, No Motor Deficits, Normal Affect, Normal Mood, No Sensory Deficits Cerebellar Function: Normal Reflexes: Normal Skin: Dry, Normal Color, Warm Lymphatic: No Adenopathy Was a procedure done? Was a procedure done?: No EKG EKG : Pulse Rate (adult): 111 [place]: Normal Cardiac Rhythm: ST Block: None Hypertrophy: None ST: Normal Differential Dx Considerations may include: [place], PE, ACS, URI, PNA, viral syndrome, angina, among others X-Ray, Labs, Meds, VS Vital Signs Date Time Temp Pulse Resp B/P (MAP) Pulse Ox O2 Delivery O2 Flow Rate FiO2 09/16/24 01:13 111 09/16/24 01:01 98.2 109 20 150/105 (120) 97 98.2 Lab Test 09/16/24 02:19 09/16/24 01:02 Range/Units Troponin I High Sensitivity Pending < 3 L </=34 ng/L White Blood Count 17.4 H 4.4-10.8 10^3/uL Red Blood Count 4.81 4.0-5.20 10^6/uL Hemoglobin 9.2 L 12.2-16.2 g/dL Hematocrit 30.1 L 36.0-46.0 % Mean Corpuscular Volume 62.6 L 80.0-100.0 fL Mean Corpuscular Hemoglobin 19.1 L 28.0-32.0 pg Mean Corpuscular Hemoglobin Concent 30.5 L 32.0-36.0 g/dL Red Cell Distribution Width 22.7 H 11.8-14.3 % Platelet Count 546 H 140-450 10^3/uL Mean Platelet Volume 8.5 6.9-10.8 fL Neutrophils (%) (Auto) 37.0-80.0 % Lymphocytes (%) (Auto) 10.0-50.0 % Monocytes (%) (Auto) 0.0-12.0 % Basophils (%) (Auto) 0.0-2.0 % Neutrophils # (Auto) 1.6-8.6 10 ^3/uL Lymphocytes # (Auto) 0.4-5.4 10 ^3/uL Monocytes # (Auto) 0-1.3 10 ^3/uL Differential Total Cells Counted 100.0 100 Neutrophils % (Manual) 71 37.0-80.0 Band Neutrophils % (Manual) 0 Lymphocytes % (Manual) 23 10.0-50.0 Monocytes % (Manual) 5 0-12 Eosinophils % (Manual) 1 0-7 Basophils % (Manual) 0 0.0-2.0 Metamyelocytes % (manual) 0 Myelocytes % (Manual) 0 Promyelocytes % (Manual) 0 Blast Cells % (Manual) 0 Reactive Lymphocytes 0 Platelet Estimate Increased Hypochromasia (manual) Marked Anisocytosis (manual) Slight Microcytosis Marked Ovalocytes Few Sodium Level 137 136-145 mmol/L Potassium Level 3.3 L 3.5-5.1 mmol/L Chloride Level 105 98-107 mmol/L Carbon Dioxide Level 22 20-31 mmol/L Anion Gap 10 5-15 Blood Urea Nitrogen 7 L 9-23 mg/dL Creatinine 0.84 0.550-1.02 mg/dL Glomerular Filtration Rate Calc 86 >90 mL/min BUN/Creatinine Ratio 8.3 L 10.0-20.0 Serum Glucose 104 74-106 mg/dL Calcium Level 8.8 8.7-10.4 mg/dL [address] [address] Ph: [phone] DIAGNOSTIC IMAGING Diagnostic Imaging Report : [id number] Signed PATIENT: JOSEPHINE STEEN ACCT: [id number] UNIT: [id number] : 1975 LOC: ER ROOM / BED: / AGE / SEX: 48 / F ADM STATUS: REG ER SERVICE [id number] ORDERING PHYSICIAN: FELTON BONILLA PROCEDURE(s): CXR1 - CHEST XRAY 1 VIEW REASON: cp ORDER NUMBER(s): [id number], ACCESSION NUMBER(s): [id number] CHEST RADIOGRAPH Indication: cp Technique: Single frontal view of the chest was obtained COMPARISON: None FINDINGS: Lines and Tubes: None Lungs: Mild diffuse increased prominence of the pulmonary vasculature. No evidence of focal consolidation. Pleura: No effusion. No pneumothorax. Cardiomediastinal contours: Unremarkable Bones: Unremarkable IMPRESSION: 1. No acute disease. Mild diffuse increased prominence of the pulmonary vasculature. ATED BY: FERNANDO VELÁZQUEZ MD DICTATED DATE/TIME: 09/16/24117 SIGNED BY: FERNANDO VELÁZQUEZ MD SIGNED DATE/TIME: 09/16/24117 CC: X-Ray, Labs, Meds, VS Comment Imaging: X-rays and CT scans were reviewed and interpreted by this provider, imaging shows no fractures and no pathological disease. Pending radiology review. Laboratory: Labs reviewed and interpreted by this provider. Review of prior labs and prior visits show no significant change from her anemia and her leukocytosis, this may be baseline for patient. Patient denies any fever or chills or symptoms of the sort. Patient has prior medical visits reviewed. Med reconciliation performed Vital signs reviewed Time of 1ST Reevaluation: 01:30 Reevaluation 1ST: Unchanged Patient Education/Counseling: Diagnosis, Treatment, Need For Follow Up (Follow up with PCP next available appointment. Return to the emergency department if symptoms worsen.) Family Education/Counseling: No Family Present Additional Information Previous medical records reviewed: Labs and tests ordered: CXR, Troponin, UA, BMP, CBC Independent historians reviewed: N/A Image findings in agreement with: CXR SEPSIS Sepsis Screen Physician Orders Urinalysis (09/16/24 00:58) Chest Xray 1 View (09/16/24 00:58) Troponin-I Hs (09/16/24 01:58) Troponin-I Hs (09/16/24 03:58) Alprazolam Tablet (Xanax Tablet) (09/16/24 02:30) Vital Signs Date Time Temp Pulse Resp B/P (MAP) Pulse Ox O2 Delivery O2 Flow Rate FiO2 09/16/24 01:13 111 09/16/24 01:01 98.2 109 20 150/105 (120) 97 98.2 Laboratory Tests Test 09/16/24 01:02 White Blood Count 17.4 10^3/uL (4.4-10.8) H Departure 1 Departure Time of Disposition: 02:26 Impression: Primary Impression: Leukocytosis Qualified Codes: D72.825 - Bandemia Additional Impressions: Anemia Qualified Codes: D64.9 - Anemia, unspecified Anxiety Disposition: HOME / SELF CARE / HOMELESS Condition: Fair Discharged With: Self Critical Care Note Critical Care Time?: No Stability Stability form required: No Heart Score Heart Score: Heart Score Response (Comments) Value History Slightly Suspicious 0 EKG Normal 0 Age 45-64 1 Risk Factors 1 or 2 risk factors 1 Troponin Normal limit 0 Total 2 I personally scribed for FELTON BONILLA (VIC) on 09/16/24 at 01:13. Electronically submitted by Mauricio Levine ([email or web address]). I personally scribed for FELTON BONILLA DAIRY EQUIPMENT SPECIALIST (VIC) on 09/16/24 at 01:23. Electronically submitted by Mauricio Levine ([email or web address]). FELTON BONILLA Sep 16, 2024 01:13
--- NOTE | 2024-09-16 01:20 | DVH ---
CHEST RADIOGRAPH Indication: cp Technique: Single frontal view of the chest was obtained COMPARISON: None FINDINGS: Lines and Tubes: None Lungs: Mild diffuse increased prominence of the pulmonary vasculature. No evidence of focal consolid ation. Pleura: No effusion. No pneumothorax. Cardiomediastinal contours: Unremarkable Bones: Unremarkable IMPRESSION: 1. No acute disease. Mild diffuse increased prominence of the pulmonary vasculature.
[2024-09-16 01:28] LABS: Hematocrit 30.1 % (36.0-46.0); Hemoglobin 9.2 g/dL (12.2-16.2); Mean Corpuscular Hemoglobin 19.1 pg (28.0-32.0); Mean Corpuscular Volume 62.6 fL (80.0-100.0)
[2024-09-16 01:33] LABS: Chloride 105 mmol/L (98-107); Sodium 137 mmol/L (136-145)
[2024-09-16 01:34] LABS: Anion Gap 10 (5-15); Calcium 8.8 mg/dL (8.7-10.4); Carbon Dioxide 22 mmol/L (20-31)
[2024-09-16 01:39] LABS: BUN/Creatinine Ratio 8.3 (10.0-20.0); Glucose 104 mg/dL (74-106)
[2024-09-16 01:48] LABS: Blood Urea Nitrogen 7 mg/dL (9-23); Potassium 3.3 mmol/L (3.5-5.1)
[2024-09-16 02:16] LABS: Total Cells Counted 100.0 (100)
[2024-09-16 02:17] LABS: Anisocytosis Slight; Ovalocytes FEW
[2024-09-16 05:40] VITALS: RESP 16; O2SAT 98
[2024-09-16] MEDS: ALPRAZolam 0.5 MG TAB PO ONE (05:43)
[2024-09-16 05:48] VITALS: BP 147/94; PULSE 87; RESP 18; TEMP 97.7; O2SAT 100
--- NOTE | 2024-09-17 08:42 | ECG ---
[facility] Test Date: 2024-09-16 Test Time: 00:51:06 Pat Name: JOSEPHINE STEEN Department: ER Room: Gender: F Upper Doubler: YONATHAN : 1975 Requested By: FELTON BONILLA Order Number: [id number] Reading MD: Measurements Intervals [place] Rate: 111 P: 53 CA: 166 QRS: 14 QRSD: 87 T: 17 QT: 339 QTc: 461 Interpretive Statements Sinus tachycardia Low voltage, precordial leads Please click the below link to view image of tracing.
== END 2024-09-16 05:55 | disposition home or self-care (01) ==
LOC: ER 00:44
DX: D72.829 Elevated white blood cell count, unspecified (principal); D64.9 Anemia, unspecified; F41.9 Anxiety disorder, unspecified; E11.9 Type 2 diabetes mellitus without complications; K21.9 Gastro-esophageal reflux disease without esophagitis; I10 Essential (primary) hypertension; E66.9 Obesity, unspecified; Z68.36 Body mass index [BMI] 36.0-36.9, adult; Z79.1 Long term (current) use of non-steroidal anti-inflammatories (NSAID); Z79.899 Other long term (current) drug therapy
CPT/HCPCS: 36415; 71045; 80048; 84484; 85007; 85027; 93005

== ENCOUNTER → 2024-11-12 | Emergency (ER) | payer MEDICARE, MEDICAID ==
[~2024-11-12] VITALS: Ht 165.1 cm; Wt 96.9 kg
[2024-11-12 21:42] VITALS: BP 169/108; PULSE 97; RESP 18; TEMP 99.1; O2SAT 97
== END | disposition left against medical advice (07) ==
LOC: ER 21:42
DX: R53.1 Weakness (principal); Z53.21 Procedure and treatment not carried out due to patient leaving prior to being seen by health care provider

== ENCOUNTER 2024-11-28 15:17 | Emergency (ER) | payer MEDICARE, MEDICAID ==
[~2024-11-28] VITALS: Ht 165.1 cm; Wt 97.0 kg
--- NOTE | 2024-11-28 15:32 | ED.PDOC ---
History of Present Illness HPI Comments HPI: 48 y/o F, with PMHx of anxiety, anemia, DM, GERD, and HTN presents to the ED for CC of chest pain. Patient states, she has been experiencing chest pain with associated symptoms of left-sided abdominal pain, constipation, and headaches x1day. Patient relays, chest pain to be intermittent and having had experienced similar symptoms in the past. Patient endorses, her last bowel movement to have been as of x2days ago. Patient further c/o slight blurred vision when having headaches. Patient denies shortness of breath, cough, fever, chills, nausea, or vomiting. No other symptoms or modifying factors are present at this time. Patient is on daily iron. It is not unusual for her to have a bowel movement every two days. Initial Vitals BP: HR: RR: O2: Temp: Past Medical History:anxiety, anemia, DM, GERD, HTN Past Surgical History: DENIES ANY Social History: Denies ETOH, smoking, and drug use. Medications: DENIES ANY Allergies: CONTRAST HPI: Poor Historian. REVIEW OF SYSTEMS: CONSTITUTIONAL: Denies acute: fever, diaphoresis, chills, generalized weakness. HEAD: Denies acute: headache, photophobia Eyes: Denies acute: Double vision, vision loss, eye pain, eye discharge. EARS: Denies acute: tinnitus, hearing loss, ear discharge, ear pain, THROAT: Denies acute: sore throat, swelling, difficulty swallowing , pain with swallowing, change in voice. NECK: Denies acute: neck pain, neck swelling, stiff neck. HEART: Denies acute : palpitations, LUNGS: Denies acute: SOB, wheezing, cough, hemoptysis ABDOMEN: Denies acute: Nausea, Vomiting, diarrhea, melena , hematemesis, hematochezia SKIN: Denies acute: rash, redness, lesions, itchiness. EXTREMITIES: Denies acute: calf pain, numbness, tingling, weakness, denies pain in extremity. Denies acute: Low back pain. Neuro: Denies acute: focal neurological deficit, motor or sensory focal neurological deficit, tremors, seizure like activity, confusion, dizziness, change in mental status, loss of bowel or bladder function, cauda equina like symptoms. : Denies acute: dysuria, hematuria, flank pain, increase in urinary frequency. PSYCH: Denies acute: hallucination, suicidal ideation, homicidal ideation. FEMALE: Denies acute: abnormal vaginal bleeding, foul odor, unusual discharge. PHYSICAL EXAM: General: ----no----acute distress, awake and alert. Head: normocephalic, atraumatic. Neck: supple, trachea is midline, no swelling. Throat: Normal phonation. Eyes:, no erythema, no purulent discharge, no proptosis, no icterus. Heart: regular rate, regular rhythm, no significant murmur appreciated. Lungs: no apparent respiratory distress, Able to speak in full sentences. No wheezing, no rhonchi, no crackles. No stridors Clear to auscultation bilaterally. Abdomen: Minimal left-sided tender to palpation, non distended, soft, no guarding, no rebound, + bowel sounds. Patient has said when she gets the pain it is usually UTIs. Neuro: Awake, Alert, oriented to name, self, situation, follows commands GCS=15. Speech is normal. Skin: no petechia, no purpura, no cyanosis, non-pale, not jaundice. Lower extremities: --no - Pitting edema no deformity, no focal swelling, no calf TTP. Makes eye contact. moves all four extremities. Face: no apparent facial droop. Ambulating in the ED independently. ED COURSE: DISCLAIMER: This medical document was created using an electronic medical record system with voice recognition software and computerized dictation system. Although this document has been carefully reviewed, there might still be some phonetic and typographical errors. Occasional wrong-word or "sound-alike" substitutions may have occurred due to the inherent limitations of voice recognition software. These areas are purely typographical due to imperfections of the software programs and do not reflect any compromise in the patient's medical care. Please read the chart carefully and recognize, using context, where these substitutions have occurred. Chief Complaint: Palpitations Time Seen by MD: 15:30 Reviewed Notes: Nurses Notes, Medications, Allergies Allergies: Uncoded Allergies: CONTRAST (Allergy, Unknown, 02/19/24) Home Meds Active Scripts Sulfamethoxazole W/Trimethopri (Bactrim Ds Tablet) 1 Tab Tb, 1 TAB PO BID for 3 Days, #6 TAB Prov:ADELAIDE BLOUNT PAC 08/16/24 Ferrous Sulfate (FERROUS SULFATE) 325 Mg Tb, 1 TAB PO DAILY for 30 Days, #30 TAB 0 Refills Prov:BERTHA JOHNSON SCREEN EXAMINER 02/19/24 Ibuprofen (Ibuprofen) 600 Mg Tab, 1 TAB PO TID for 10 Days, #30 TAB 0 Refills Prov:BERTHA JOHNSON SCREEN EXAMINER 02/19/24 Amoxicillin & Pot Clavulanate (AUGMENTIN TABLET) 875 Mg Tb, 875 MG PO BID for 7 Days, #14 TAB 0 Refills Prov:BERTHA JOHNSON SCREEN EXAMINER 02/19/24 Information Source: Patient Mode of Arrival: Ambulatory Severity: Moderate Timing: Days Duration: Since onset Prehospital treatment: None Was a procedure done? Was a procedure done?: No Differential Dx Considerations may include: As far as chest pain: Ddx include but not limitied to gastritis, musculoskeletal pain, radiculopathy, atypical chest pain, dissection, aneurysm, ACS, unstable angina, hiatal hernia, GERD, anxiety, costochondritis, PE, pneumothroax, neoplasm, cardiac ischemia, drug abuse, anemia. As far as headache: DDX include Sinusitis, migraine, meningitis, hypertension, intracranial mass/bleed, stroke, radiculopathy, vertebrobasillary insufficiency, cephalgia, pseudotumor cerebri, cerebellar ischemia/infarct, carotid stenosis, lacunar infarct, vertebral/carotid artery dissection, hydrocephalus, temporal arteritis, dura venous sinus thrombosis. As far as abdominal pain: DDX include Diverticulitis, colitis, gastroenteritis, acute abdomen, SBO, enteritis, constipation, volvulus, appendicitis, Gallbladder disease, choledocolithiasis, ascending cholangitis, pancreatitis, intraAbdominal mass/neoplasm, hepatitis, UTI, pylonephritis, kidney stone, aneurysm, dissection, Inflammatory bowel disease, gastroparesis, ischemic bowel,,,,,, ovarian torsion, ovarian cyst/mass, tubo-ovarian abscess, , ectopic , PID, STD. X-Ray, Labs, Meds, VS Vital Signs Date Time Temp Pulse Resp B/P (MAP) Pulse Ox O2 Delivery O2 Flow Rate FiO2 11/28/24 17:15 98.2 94 17 132/92 (105) 92 98.2 11/28/24 17:01 86 11/28/24 15:54 51 11/28/24 15:19 97.0 94 18 139/101 97 97.0 Lab Test 11/28/24 17:06 11/28/24 16:07 11/28/24 15:47 Range/Units Troponin I High Sensitivity < 3 L < 3 L </=34 ng/L Urine Color Light-yellow Yellow Urine Clarity Clear Clear Urine pH 5.5 5.0-9.0 Urine Specific [place] 1.033 1.001-1.035 Urine Protein Negative Negative Urine Ketones Negative Negative Urine Blood Negative Negative /uL Urine Nitrite Negative Negative Urine Bilirubin Negative Negative Urine Urobilinogen Normal Negative mg/dL Urine Leukocyte Esterase Negative Negative /uL Urine RBC 1 0 - 4 /hpf Urine Microscopic WBC < 1 0-5 /HPF Urine Squamous Epithelial Cells Few <5 /hpf Urine Bacteria None seen None Seen /hpf Urine Glucose 4+ H Normal mg/dL White Blood Count 19.5 H 4.4-10.8 10^3/uL Red Blood Count 4.88 4.0-5.20 10^6/uL Hemoglobin 10.3 L 12.2-16.2 g/dL Hematocrit 33.3 L 36.0-46.0 % Mean Corpuscular Volume 68.2 L 80.0-100.0 fL Mean Corpuscular Hemoglobin 21.2 L 28.0-32.0 pg Mean Corpuscular Hemoglobin Concent 31.0 L 32.0-36.0 g/dL Red Cell Distribution Width 25.5 H 11.8-14.3 % Platelet Count 407 140-450 10^3/uL Mean Platelet Volume 8.2 6.9-10.8 fL Neutrophils (%) (Auto) 75.2 37.0-80.0 % Lymphocytes (%) (Auto) 17.3 10.0-50.0 % Monocytes (%) (Auto) 5.8 0.0-12.0 % Eosinophils (%) (Auto) 1.1 0.0-7.0 % Basophils (%) (Auto) 0.6 0.0-2.0 % Neutrophils # (Auto) 14.6 H 1.6-8.6 10 ^3/uL Lymphocytes # (Auto) 3.4 0.4-5.4 10 ^3/uL Monocytes # (Auto) 1.1 0-1.3 10 ^3/uL Eosinophils # (Auto) 0.2 0-0.8 10 ^3/uL Basophils # (Auto) 0.1 0-0.2 10 ^3/uL Nucleated Red Blood Cells 0.0 % Platelet Estimate Adequate Large Platelets Few Hypochromasia (manual) Moderate Poikilocytosis (manual) Slight Anisocytosis (manual) Moderate Microcytosis Marked Sodium Level 141 136-145 mmol/L Potassium Level 3.6 3.5-5.1 mmol/L Chloride Level 106 98-107 mmol/L Carbon Dioxide Level 23 20-31 mmol/L Anion Gap 12 5-15 Blood Urea Nitrogen 8 L 9-23 mg/dL Creatinine 0.74 0.550-1.02 mg/dL Glomerular Filtration Rate Calc 100 >90 mL/min BUN/Creatinine Ratio 10.8 10.0-20.0 Serum Glucose 100 74-106 mg/dL Lactic Acid Level 2.1 *H 0.4-2.0 mmol/L Calcium Level 9.2 8.7-10.4 mg/dL Total Bilirubin 0.2 0.2-1.0 mg/dL Aspartate Amino Transferase (AST) 8 L 13-40 U/L Alanine Aminotransferase (ALT) 10 7-40 U/L Alkaline Phosphatase 100 46-116 U/L Total Protein 6.7 5.7-8.2 g/dL Albumin 4.2 3.2-4.8 g/dL Lipase 38 12-53 U/L Current Medications Medications (Trade) Dose Ordered Sig/Vannessa Route Start Time Stop Time Status Last Admin Sodium Chloride 1,000 ml @ 1,000 mls/hr Q1H ONCE IV 11/28/24 16:30 11/28/24 17:29 DC 11/28/24 17:13 Aspirin (Ecotrin Enteric Coated Tablet) 325 mg ONCE ONCE PO 11/28/24 17:15 11/28/24 17:16 DC 11/28/24 17:14 [place] [address] Ph: [phone] DIAGNOSTIC IMAGING Diagnostic Imaging Report : [id number] Signed PATIENT: JOSEPHINE STEEN ACCT: [id number] UNIT: [id number] : 1975 LOC: ER ROOM / BED: / AGE / SEX: 48 / F ADM STATUS: REG ER SERVICE 1536 ORDERING PHYSICIAN: LAISHA RAHMAN DO PROCEDURE(s): HWOCT - HEAD WITHOUT CONTRAST REASON: MULLINS ORDER NUMBER(s): [id number], ACCESSION NUMBER(s): [id number] CT HEAD WITHOUT CONTRAST Indication: MULLINS EXAM DATE: 11/28/2024 03:48 PM COMPARISON: CT BRAIN on DOS: 10/25/24, CT BRAIN on DOS: 10/15/24, CT HEAD WITHOUT CONTRAST on DOS: 09/14/24, CT BRAIN on DOS: 07/03/24, CT HEAD WITHOUT CONTRAST on DOS: 02/10/24 TECHNIQUE: CT of the head without intravenous contrast. RADIATION DOSE: CTDIvol: 50.4 mGy, DLP: 756 mGy*cm FINDINGS: There is no intracranial hemorrhage. There is no extra-axial fluid, mass, mass effect or midline shift. The ventricles are midline and normal in size. Basilar cisterns are patent. Fernandez-white differentiation is maintained. The paranasal sinuses and mastoids are well-pneumatized. Imaged portion of the orbits are unremarkable. IMPRESSION: No intracranial hemorrhage or mass effect. ATED BY: KAILEY HESS MD DICTATED DATE/TIME: 11/28/24 163 SIGNED BY: KAILEY HESS MD SIGNED DATE/TIME: 11/28/24 163 CC: [place] [address] Ph: [phone] DIAGNOSTIC IMAGING Diagnostic Imaging Report : [id number] Signed PATIENT: JOSEPHINE STEEN ACCT: [id number] UNIT: [id number] : 1975 LOC: ER ROOM / BED: / AGE / SEX: 48 / F ADM STATUS: REG ER SERVICE 1536 ORDERING PHYSICIAN: LAISHA RAHMAN DO PROCEDURE(s): ABPL - CT AB PEL WO CON-NO ORAL OR IV REASON: L ABD PAIN, CONSTIPATION ORDER NUMBER(s): [id number], ACCESSION NUMBER(s): [id number] EXAM DESCRIPTION: CT CT AB PEL WO CON-NO ORAL OR IV CLINICAL HISTORY: L ABD PAIN, CONSTIPATION COMPARISON: CT ABD/PEL on DOS: 10/30/24, MRI ABDOMEN W and WO on DOS: 10/16/24, CT CHEST/ABD/PEL on DOS: 10/15/24, CT CHEST/ABD/PEL W - IV on DOS: 10/15/24, US ABDOMEN COMPLETE on DOS: 08/12/24 TECHNIQUE: CT abdomen and pelvis without IV contrast was performed. Coronal and sagittal MPR images were generated.CTDI/ DLP = / Dose reduction technique with one or more of the following methods was performed: Automated exposure control, adjustment of the mA and/or kV according to patient size, use of iterative reconstruction te[place] FINDINGS: Lower chest: Clear lung bases. Liver: Homogenous in attenuation. . Biliary: No calcified gallstones. No biliary ductal dilatation. Pancreas: No fat stranding or focal lesion. Spleen: Normal in size.. Adrenal glands: 2.2cm left adrenal nodule, indeterminate. 2.2cm low density right adrenal nodule, consistent with an adenoma. Kidneys: No nephrolithiasis. No hydroureteronephrosis. . Bladder: Underdistended, limiting evaluation. Reproductive organs: Normal. Bowel: No bowel wall thickening or dilatation. Normal appendix.. Peritoneum: No free fluid. No free air. Vessels: Normal caliber abdominal aorta. Mild atherosclerotic calcifications.. Lymph nodes: No suspicious lymph nodes. Soft tissues: Unremarkable. . Osseous structures: No acute fracture or subluxation. No suspicious osseous lesions. IMPRESSION: 1. No acute abnormality within the abdomen or pelvis. 2. Indeterminate 2.2 cm left adrenal nodule. Consider outpatient evaluation with CT with IV contrast (adrenal protocol). 3. A 2.2 cm right adrenal nodule, consistent with adrenal adenoma. ATED BY: FERNANDO HARLEY MD DICTATED DATE/TIME: 11/28/24 1640 SIGNED BY: FERNANDO HARLEY MD SIGNED DATE/TIME: 11/28/24 1640 CC: Time of 1ST Reevaluation: 16:00 Reevaluation 1ST: Unchanged Patient Education/Counseling: Diagnosis, Treatment Family Education/Counseling: Other Comments Patient heart score is moderate MDM: patient presented with the above HPI.--cardiac and GI symptoms--workup was initiated. patient was found with the above mentioned diagnosis. the following medications were ordered: please refer to order lists of meds and tests obtained by myself Dr. Rahman. Patient ED course and VS have been stabilized. Patient has been reassessed in the ED and remained in a stable condition. Patient has been observed in the ED adequate length of time to insure improvement/stability. Escalation of care considered: Consideration of escalation to observation or admission Patient was ADMITTED to the medicine team for further evaluation and treatment of their presentation. All the reports of any imaging studies that were ordered by myself were reviewed by myself. SEPSIS Sepsis Screen Date sepsis recognized/suspect: Nov 28, 2024 Time Sepsis recognized/suspect: 1523 Recent Procedure: No On Antibiotic Therapy: No Respiratory Rate >20: No Heart Rate >90: Yes Temp<36 C (96.8 F) or >38.3 C: No SBP <90 or MAP <65 mmHG: No New Acute Mental Status Change: No Is the patient on CPAP, BIPAP,: No Physician Orders [employer] [place] (11/28/24 ) Electrocardigram (11/28/24 15:32) Head Without Contrast (11/28/24 15:36) Ct Ab Pel Wo Con-No Oral Or Iv (11/28/24 15:36) Blood Culture (11/28/24 16:27) Vital Signs Date Time Temp Pulse Resp B/P (MAP) Pulse Ox O2 Delivery O2 Flow Rate FiO2 11/28/24 17:15 98.2 94 17 132/92 (105) 92 98.2 11/28/24 17:01 86 11/28/24 15:54 51 11/28/24 15:19 97.0 94 18 139/101 97 97.0 Laboratory Tests Test 11/28/24 15:47 Lactic Acid Level 2.1 mmol/L (0.4-2.0) *H White Blood Count 19.5 10^3/uL (4.4-10.8) H Medications Medications Dose Ordered Sig/Vannessa Route Start Time Stop Time Status Last Admin Dose Admin Aspirin 325 mg ONCE ONCE PO 11/28/24 17:15 11/28/24 17:16 DC 11/28/24 17:14 Sodium Chloride 1,000 ml @ 1,000 mls/hr Q1H ONCE IV 11/28/24 16:30 11/28/24 17:29 DC 11/28/24 17:13 Departure 1 Departure Time of Disposition: 17:09 Impression: Primary Impression: Headache Additional Impressions: Leukocytosis Abnormal finding on CT scan Chest pain Adrenal adenoma Disposition: ADMITTED INPATIENT Admit to: Tele Condition: Guarded Additional Instructions: [place] [address] Ph: [phone] DIAGNOSTIC IMAGING Diagnostic Imaging Report : [id number] Signed PATIENT: JOSEPHINE STEEN ACCT: [id number] UNIT: [id number] : 1975 LOC: ER ROOM / BED: / AGE / SEX: 48 / F ADM STATUS: REG ER SERVICE 1536 ORDERING PHYSICIAN: LAISHA RAHMAN DO PROCEDURE(s): HWOCT - HEAD WITHOUT CONTRAST REASON: MULLINS ORDER NUMBER(s): [id number], ACCESSION NUMBER(s): [id number] CT HEAD WITHOUT CONTRAST Indication: MULLINS EXAM DATE: 11/28/2024 03:48 PM COMPARISON: CT BRAIN on DOS: 10/25/24, CT BRAIN on DOS: 10/15/24, CT HEAD WITHOUT CONTRAST on DOS: 09/14/24, CT BRAIN on DOS: 07/03/24, CT HEAD WITHOUT CONTRAST on DOS: 02/10/24 TECHNIQUE: CT of the head without intravenous contrast. RADIATION DOSE: CTDIvol: 50.4 mGy, DLP: 756 mGy*cm FINDINGS: There is no intracranial hemorrhage. There is no extra-axial fluid, mass, mass effect or midline shift. The ventricles are midline and normal in size. Basilar cisterns are patent. Fernandez-white differentiation is maintained. The paranasal sinuses and mastoids are well-pneumatized. Imaged portion of the orbits are unremarkable. IMPRESSION: No intracranial hemorrhage or mass effect. ATED BY: KAILEY HESS MD DICTATED DATE/TIME: 11/28/241635 SIGNED BY: KAILEY HESS MD SIGNED DATE/TIME: 11/28/24 163 CC: [place] [address] Ph: [phone] DIAGNOSTIC IMAGING Diagnostic Imaging Report : [id number] Signed PATIENT: JOSEPHINE STEEN ACCT: [id number] UNIT: [id number] : 1975 LOC: ER ROOM / BED: / AGE / SEX: 48 / F ADM STATUS: REG ER SERVICE 1536 ORDERING PHYSICIAN: LAISHA RAHMAN DO PROCEDURE(s): ABPL - CT AB PEL WO CON-NO ORAL OR IV REASON: L ABD PAIN, CONSTIPATION ORDER NUMBER(s): [id number], ACCESSION NUMBER(s): [id number] EXAM DESCRIPTION: CT CT AB PEL WO CON-NO ORAL OR IV CLINICAL HISTORY: L ABD PAIN, CONSTIPATION COMPARISON: CT ABD/PEL on DOS: 10/30/24, MRI ABDOMEN W and WO on DOS: 10/16/24, CT CHEST/ABD/PEL on DOS: 10/15/24, CT CHEST/ABD/PEL W - IV on DOS: 10/15/24, US ABDOMEN COMPLETE on DOS: 08/12/24 TECHNIQUE: CT abdomen and pelvis without IV contrast was performed. Coronal and sagittal MPR images were generated.CTDI/ DLP = / Dose reduction technique with one or more of the following methods was performed: Automated exposure control, adjustment of the mA and/or kV according to patient size, use of iterative reconstruction te[place] FINDINGS: Lower chest: Clear lung bases. Liver: Homogenous in attenuation. . Biliary: No calcified gallstones. No biliary ductal dilatation. Pancreas: No fat stranding or focal lesion. Spleen: Normal in size.. Adrenal glands: 2.2cm left adrenal nodule, indeterminate. 2.2cm low density right adrenal nodule, consistent with an adenoma. Kidneys: No nephrolithiasis. No hydroureteronephrosis. . Bladder: Underdistended, limiting evaluation. Reproductive organs: Normal. Bowel: No bowel wall thickening or dilatation. Normal appendix.. Peritoneum: No free fluid. No free air. Vessels: Normal caliber abdominal aorta. Mild atherosclerotic calcifications.. Lymph nodes: No suspicious lymph nodes. Soft tissues: Unremarkable. . Osseous structures: No acute fracture or subluxation. No suspicious osseous lesions. IMPRESSION: 1. No acute abnormality within the abdomen or pelvis. 2. Indeterminate 2.2 cm left adrenal nodule. Consider outpatient evaluation with CT with IV contrast (adrenal protocol). 3. A 2.2 cm right adrenal nodule, consistent with adrenal adenoma. ATED BY: FERNANDO HARLEY MD DICTATED DATE/TIME: 11/28/24 1640 SIGNED BY: FERNANDO HARLEY MD SIGNED DATE/TIME: 11/28/24 1640 CC: Discharged With: Self Critical Care Note Critical Care Time?: No I personally scribed for LAISHA RAHMAN DO ([email or web address]) on 11/28/24 at 15:32. Electronically submitted by Ankita Ward ([email or web address]). I personally scribed for LAISHA RAHMAN DO ([email or web address]) on 11/28/24 at 15:39. Electronically submitted by Ankita Ward ([email or web address]). I personally scribed for LAISHA RAHMAN DO ([email or web address]) on 11/28/24 at 15:55. Electronically submitted by Ankita Ward ([email or web address]). I personally scribed for LAISHA RAHMAN DO ([email or web address]) on 11/28/24 at 16:45. Electronically submitted by Ankita Ward ([email or web address]). I personally scribed for LAISHA RAHMAN DO ([email or web address]) on 11/28/24 at 16:47. Electronically submitted by Ankita Ward ([email or web address]). LAISHA RAHMAN DO Nov 28, 2024 15:32
[2024-11-28 16:01] LABS: Nucleated Red Blood Cells % 0.0 %
[2024-11-28 16:03] LABS: Hematocrit 33.3 % (36.0-46.0); Hemoglobin 10.3 g/dL (12.2-16.2); Mean Corpuscular Hemoglobin 21.2 pg (28.0-32.0); Mean Corpuscular Volume 68.2 fL (80.0-100.0)
[2024-11-28 16:18] LABS: Urine Protein, UAD Negative (Negative)
[2024-11-28 16:18] LABS: Alanine Aminotransferase 10 U/L (7-40); Albumin 4.2 g/dL (3.2-4.8); Alkaline Phosphatase 100 U/L (46-116); Anion Gap 12 (5-15); BUN/Creatinine Ratio 10.8 (10.0-20.0); Calcium 9.2 mg/dL (8.7-10.4); Carbon Dioxide 23 mmol/L (20-31); Chloride 106 mmol/L (98-107); Glucose 100 mg/dL (74-106); Lipase 38 U/L (12-53); Potassium 3.6 mmol/L (3.5-5.1); Sodium 141 mmol/L (136-145); Total Protein 6.7 g/dL (5.7-8.2)
[2024-11-28 16:21] LABS: Bilirubin, Total 0.2 mg/dL (0.2-1.0); Blood Urea Nitrogen 8 mg/dL (9-23)
[2024-11-28 16:24] LABS: Lactic Acid w/Reflex 2.1 mmol/L (0.4-2.0)
[2024-11-28 16:27] LABS: Anisocytosis Moderate
--- NOTE | 2024-11-28 16:35 | DVH ---
CT HEAD WITHOUT CONTRAST Indication: MULLINS EXAM DATE: 11/28/2024 03:48 PM COMPARISON: CT BRAIN on DOS: 10/25/24, CT BRAIN on DOS: 10/15/24, CT HEAD WITHOUT CONTRAST on DOS: 09/14, CT BRAIN on DOS: 07/03/24, CT HEAD WITHOUT CONTRAST on DOS: 02/10/24 TECHNIQUE: CT of the head without intravenous contrast. RADIATION DOSE: CTDIvol: 50.4 mGy, DLP: 756 mGy*cm FINDINGS: There is no intracranial hemorrhage. There is no extra-axial fluid, mass, mass effect or midline shif t. The ventricles are midline and normal in size. Basilar cisterns are patent. Fernandez-white differentia tion is maintained. The paranasal sinuses and mastoids are well-pneumatized. Imaged portion of the orbits are unremarkabl e. IMPRESSION: No intracranial hemorrhage or mass effect.
--- NOTE | 2024-11-28 16:42 | DVH ---
EXAM DESCRIPTION: CT CT AB PEL WO CON-NO ORAL OR IV CLINICAL HISTORY: L ABD PAIN, CONSTIPATION COMPARISON: CT ABD/PEL on DOS: 10/30/24, MRI ABDOMEN W and WO on DOS: 10/16/24, CT CHEST/ABD/PEL on DOS: 10/15/24, CT CHEST/ABD/PEL W - IV on DOS: 10/15/24, US ABDOMEN COMPLETE on DOS: 08/12/24 TECHNIQUE: CT abdomen and pelvis without IV contrast was performed. Coronal and sagittal MPR images were generat ed.CTDI/ DLP = / Dose reduction technique with one or more of the following methods was performed: Automated exposure control, adjustment of the mA and/or kV according to patient size, use of iterative reconstruction te [place] FINDINGS: Lower chest: Clear lung bases. Liver: Homogenous in attenuation. . Biliary: No calcified gallstones. No biliary ductal dilatation. Pancreas: No fat stranding or focal lesion. Spleen: Normal in size.. Adrenal glands: 2.2cm left adrenal nodule, indeterminate. 2.2cm low density right adrenal nodule, con sistent with an adenoma. Kidneys: No nephrolithiasis. No hydroureteronephrosis. . Bladder: Underdistended, limiting evaluation. Reproductive organs: Normal. Bowel: No bowel wall thickening or dilatation. Normal appendix.. Peritoneum: No free fluid. No free air. Vessels: Normal caliber abdominal aorta. Mild atherosclerotic calcifications.. Lymph nodes: No suspicious lymph nodes. Soft tissues: Unremarkable. . Osseous structures: No acute fracture or subluxation. No suspicious osseous lesions. IMPRESSION: 1. No acute abnormality within the abdomen or pelvis. 2. Indeterminate 2.2 cm left adrenal nodule. Consider outpatient evaluation with CT with IV contrast (adrenal protocol). 3. A 2.2 cm right adrenal nodule, consistent with adrenal adenoma.
[2024-11-28] MEDS: SODIUM CHLORIDE 0.9% 1,000 ML IV ONE (17:13)
[2024-11-28] MEDS: ASPirin-EC 325mg tab PO ONE (17:14)
[2024-11-28 20:07] VITALS: BP 152/97; PULSE 94; RESP 20; TEMP 98.1; O2SAT 98
--- NOTE | 2024-11-28 21:45 | ECG ---
[facility] Test Date: 2024-11-28 Test Time: 17:01:28 Pat Name: JOSEPHINE STEEN Department: [facility] ED Patient ID: [facility]-[id number] Room: Gender: F Operational Review Sergeant: lenora : 1975 Requested By: LAISHA RAHMAN Order Number: [id number] Reading MD: Rl Loza Measurements Intervals West Rate: 86 P: 75 MA: 185 QRS: 32 QRSD: 90 T: 50 QT: 363 QTc: 434 Interpretive Statements Sinus rhythm Low voltage, precordial leads Baseline wander in lead(s) II,aVR,aVF Electronically Signed On 11-28-2024 22:23:23 PDT by Rl Loza Please click the below link to view image of tracing.
== END 2024-11-28 20:19 | disposition home or self-care (01) ==
LOC: ER 15:17
DX: D35.00 Benign neoplasm of unspecified adrenal gland (principal); D72.829 Elevated white blood cell count, unspecified; R07.89 Other chest pain; R51.9 Headache, unspecified; R93.89 Abnormal findings on diagnostic imaging of other specified body structures; I10 Essential (primary) hypertension; E11.9 Type 2 diabetes mellitus without complications; K21.9 Gastro-esophageal reflux disease without esophagitis; Z79.899 Other long term (current) drug therapy; Z79.1 Long term (current) use of non-steroidal anti-inflammatories (NSAID)
CPT/HCPCS: 36415; 70450; 74176; 80053; 81001; 83605; 83690; 84484; 85025; 87040; 93005; 96360; 96361; 99285; J7030